=== PATIENT | female | born 1995 | race African-American/Black ===

== ENCOUNTER 2021-04-12 13:19 | Outpatient (REF) | payer BC, SELFPAY ==
[2021-04-12 14:59] LABS: Influenza A PCR NEGATIVE (Negative); Influenza B PCR NEGATIVE (Negative); Resp Syncy Virus RNA Qual PCR NEGATIVE (Negative); SARS COV2 PCR INHOUSE NEGATIVE (Negative)
[2021-04-12 16:48] LABS: D Dimer < 200 NG/ML
== END 2021-04-12 13:20 | disposition home or self-care (01) ==
LOC: HO.HMGCLDS 13:19
PROVIDERS: Visit Provider Nurse Practitioner Family
DX: Z20.822 Contact with and (suspected) exposure to COVID-19 (principal); R06.02 Shortness of breath; J01.90 Acute sinusitis, unspecified
CPT/HCPCS: 0241U; 36415; 85379

== ENCOUNTER 2021-07-05 08:55 | Outpatient (REF) | payer BC, SELFPAY ==
[2021-07-05 11:26] LABS: MANUAL DIFF FLAG NO
[2021-07-05 11:36] LABS: Basophils Absolute Auto 0.1 X10*3/uL (0.0-0.2); Basophils Percent Auto 1.1 % (0-2); Eosinophils Absolute Auto 0.1 X10*3/uL (0.0-0.4); Hemoglobin 11.7 g/dl (12.0-16.0); Imm Gran Abs Auto 0.01 X10*3/uL (0.00-0.03); Imm Gran Pct Auto 0.2 % (0.0-0.4); Lymphocytes Absolute Auto 1.6 X10*3/uL (1.2-4.9); Lymphocytes Percent Auto 34.3 % (20-40); Mean Corpuscular HGB Conc 32.5 g/dl (31.0-35.0); Mean Corpuscular Hemoglobin 25.3 pg (27.0-33.0); Mean Corpuscular Volume 77.8 fL (80.0-98.0); Mean Platelet Volume 11.5 fL (9.4-12.3); Monocytes Absolute Auto 0.4 X10*3/uL (0.1-1.2); Neutrophils Absolute Auto 2.5 x10*3/uL (2.0-8.3); Neutrophils Percent Auto 54.4 % (45-73); Platelet Count 190 X10*3/uL (160-400); Red Blood Count 4.63 X10*6/uL (4.20-5.50); White Blood Count 4.5 X10*3/uL (4.8-10.8)
[2021-07-05 11:58] LABS: Alanine Aminotransferase 55 U/L (0-31); Albumin Level 4.4 g/dL (3.5-5.0); Alkaline Phosphatase 61 U/L (39-117); Anion Gap 11 (12-20); Aspartate Amino Transferase 45 U/L (5-31); Bilirubin Total 0.5 mg/dL (0.0-1.0); Blood Urea Nitrogen 10 mg/dL (9-16); Carbon Dioxide 28 mmol/L (22-29); Chloride 103 mmol/L (96-108); Estimated Glomerular Filt Rate > 60; Glucose Random 82 mg/dL (60-115); Potassium 4.3 mmol/L (3.3-5.1); Sodium 138 mmol/L (135-145); Total Protein 7.4 g/dL (6.5-8.0)
[2021-07-08 01:07] LABS: LDL Cholesterol Direct 66 mg/dL (<100)
== END 2021-07-05 08:56 | disposition home or self-care (01) ==
LOC: HO.HMGCLDS 08:55
PROVIDERS: PCP Internal Medicine; Visit Provider Internal Medicine
DX: Z00.01 Encounter for general adult medical examination with abnormal findings (principal); G43.009 Migraine without aura, not intractable, without status migrainosus; J45.909 Unspecified asthma, uncomplicated; Z91.09 Other allergy status, other than to drugs and biological substances
CPT/HCPCS: 36415; 80053; 83721; 85025

== ENCOUNTER 2021-08-22 09:38 | Outpatient (REF) | payer BC, SELFPAY ==
[2021-08-22 13:26] LABS: CT PCR NOT DETECTED (Not Detect.); NG PCR NOT DETECTED (Not Detect.)
[2021-08-23 08:47] LABS: BV Int Neg Control Negative (Negative); BV Int Pos Control Positive (Positive)
== END 2021-08-22 09:39 | disposition home or self-care (01) ==
LOC: HO.LAB 09:38
PROVIDERS: PCP Internal Medicine; Visit Provider Advanced Practice Midwife
DX: Z01.419 Encounter for gynecological examination (general) (routine) without abnormal findings (principal)
CPT/HCPCS: 87480; 87491; 87510; 87591; 87660; 88142

== ENCOUNTER 2023-03-04 09:03 | Outpatient (AMB) | payer BC, MEDICAID, SELFPAY ==
--- NOTE | 2023-03-04 09:11 | AM.OFFWIN_ITS ---
Intake Vital Signs 03/04/23 09:12 Height 5 ft 7 in Weight 164 lb BMI 25.7 BP 124/72 Blood Pressure Location Lt brachial Position Sitting Pulse 80 Pulse Source Pulse Oximeter Temp 97.2 F Temp Source Temporal Artery Scan Pulse Oximetry (%) 98 Intake Visit Reasons: EP Severe head/Neck/face pain Intake Note: pt is here for c/o head,neck, face pain x5 days Patient Tobacco Use Status: Current everyday Tobacco user Allergies No Known Allergies Allergy (Verified 03/04/23 09:49) Medication List - Last Reconciled 03/04/23 by Aaron Coe MD No Known Home Meds Do you need a note to return to daycare/school/sports/work: Yes HPI EP Severe head/Neck/face pain HPI Details 27-year-old female presents to the office for a sick visit. Patient complains of headaches for the past 4 days. Mostly in the center of the head and around the forehead. Minimal relief with [id number] medications. No fevers or chills. No nausea or vomiting. PFSH Family History Mother Diabetes Multiple sclerosis Father HTN (hypertension) Sister Endometriosis Paternal Grandmother Ovarian cancer Social History Housing: House Alcohol intake: current Alcohol intake frequency: a few times a week Patient Tobacco Use Status: Current everyday Tobacco user Tobacco use type: Cigar Cigarettes Per Day: 1 Current occupational status: employed Sexual orientation: Lesbian/Hein/Homosexual Physical Exam Vital Signs: Last Vital Signs Temp 97.2 F 03/04/23 09:12 Pulse 80 03/04/23 09:12 BP 124/72 03/04/23 09:12 Pulse Ox 98 03/04/23 09:12 BMI result Body Mass Index 25.7 Const General: cooperative and healthy appearing Nutritional Appearance: well nourished Orientation/consciousness: patient oriented x3 Limitations: no limitations HEENT Other: Fundus exam: Pupils equal reactive to light. Optic disc visualized in both eye s. Head: Yes normal to inspection Eyes General: appearance normal, both eyes and all related structures Neck Neck: Yes normal visual inspection Chest Chest palpation & inspection: normal palpation of entire chest wall Resp Effort & Inspection: normal respiratory effort Neuro General: patient oriented x3 Assessment & Plan Assessment & Plan (1) Headache: Code(s): R51.9 - Headache, unspecified Plan: Mostly vascular in etiology. Meloxicam prescribed. Note for work given. If symptoms not better to follow-up here. Coding Level of Care Code Est Pt Level 4 (81424) Diagnoses Headache R51.9
[2023-03-04 09:12] VITALS: BP 124/72; PULSE 80; TEMP 36.2; O2SAT 98; BMI 25.7
== END 2023-03-04 10:13 | disposition home or self-care (01) ==
PROVIDERS: PCP Internal Medicine; Visit Provider Internal Medicine
DX: R51.9 Headache, unspecified (principal)
CPT/HCPCS: 99214

== ENCOUNTER 2023-04-14 12:06 | Outpatient (AMB) | payer BC, MEDICAID, SELFPAY ==
[2023-04-14 12:17] VITALS: BP 120/70; PULSE 92; O2SAT 100; BMI 26.8
--- NOTE | 2023-04-14 12:17 | MHC.PC.OV ---
Vital Signs 04/14/23 12:17 Height 5 ft 7 in Weight 171 lb 4 oz BMI 26.8 BP 120/70 Blood Pressure Location Lt brachial Position Sitting Pulse 92 Pulse Source Pulse Oximeter Pulse Oximetry (%) 100 Oxygen Delivery Method Room Air Intake Visit Reasons: Headache Sheet Folder Required: No Allergies No Known Allergies Allergy (Verified 04/14/23 12:25) Medication List - Last Reconciled 04/14/23 by Betsy Mueller MD No Known Home Meds Tobacco use date assessed: 04/14/23 Dental Screening Dental Screen Date: 04/14/23 Did you have a dental visit in the last 12 months?: Yes Did you have a dental problem in the last 6 months where you did not have access to dental care?: No Was dental information given to patient?: Patient has dentist HPI Headache HPI Details Patient is 27-year-old female who was last seen in 2020 came in today with a chief complaint of itchy rash on forearm and headache Patient says that it started 1 month ago when she also had respiratory congestion, she was evaluated in emergency room Report reviewed, she had a CT scan of head done which showed no acute findings. Her labs showed elevated lymphocytes and slight leukopenia as per report Patient was discharged home with the diagnosis of viral syndrome. She tells me that she continued to have itching in her forearm area and also continued to have headaches off and on She is taking no medications as she does not like to take medication. Her exam is benign there is no neck rigidity, pupils are reactive to light There are no focal neurological signs. I was not able to appreciate any rash either, however her rash is symmetrical bilateral forearm on inner aspect It also can be contact dermatitis. She is using a steroid cream she may continue that, I have placed a referral to Rheumatology as per patient's request. Lab order placed as well to re-evaluate the elevated lymphocytes. PFSH Family History Mother Diabetes Multiple sclerosis Father HTN (hypertension) Sister Endometriosis Paternal Grandmother Ovarian cancer Social History Housing: House Alcohol intake: current Alcohol intake frequency: a few times a week Patient Tobacco Use Status: Former Tobacco user Tobacco use type: Cigar Cigarettes Per Day: 1 e-Cigarette/Vaping Use: Never Used service: No Current occupational status: employed Sexual orientation: Lesbian/Hein/Homosexual Cognitive needs: No Hearing needs: No Vision needs: No Questionnaire PHQ-9 Over the last 2 weeks, how often have you been bothered by any of the following problems? 1. Little interest or pleasure in doing things: several days 2. Feeling down, depressed, or hopeless: several days 3. Trouble falling or staying asleep, or sleeping too much: several days 4. Feeling tired or having little energy: not at all 5. Poor appetite or overeating: not at all 6. Feeling bad about yourself - or that you are a failure or have let yourself or your family down: not at all 7. Trouble concentrating on things, such as reading the newspaper or watching television: not at all 8. Moving or speaking so slowly that other people could have noticed. Or the opposite - being so fidgety or restless that you have been moving around a lot more than usual: not at all 9. Thoughts that you would be better off or of hurting yourself in some way: not at all Total score: 3 Depression Screening Interpretation: Negative 01312 - PHQ-9 Billing: Yes Source: Developed by Drs. Peter Sabillon, Ivette Romero, Raymon Mac and colleagues, with an educational sonam from [employer]. Thrive Questionnaire Date Thrive assessed: 04/14/23 I am a: Patient What is your living situation today?: I have a steady place to live Within the past 12 months, did the food you bought not last and you didn't have the money to get more?: Never true Within the past 12 months, did you worry whether your food would run out before you got money to buy more?: Never true Do you have trouble paying for medicines?: No Do you have trouble getting transportation to medical appointments?: No Do you have trouble paying your heating and electricity bill?: No Do you have trouble taking care of your child, family member or friend?: No Do you have trouble with day-to-day activities such as bathing, preparing meals, shopping, managing finances, etc.?: No Are you currently unemployed and looking for a job?: No Are you interested in more education?: Yes AUDIT C Alcohol Use Questionnaire (AUDIT-C) 1. How often do you have a drink containing alcohol?: Monthly or less 2. How many drinks containing alcohol do you have on a typical day when you are drinking?: 1 or 2 3. How often do you have six or more drinks on one occasion?: Never Total Score: 1 Score Reviewed/Action Taken: Yes JUAN-7 AMB Questionnaire JUAN-7 Date JUAN - 7 assessed: 04/14/23 Feeling nervous, anxious, or on edge: 1 = Several days Not being able to stop or control worryin = Several days Worrying too much about different things: 1 = Several days Trouble relaxin = Several days Being so restless that it is hard to sit still: 1 = Several days Becoming easily annoyed or irritable: 1 = Several days Feeling afraid as if something awful might happen: 1 = Several days Total JUAN-7 score (0-4 normal; 5-9 mild; 10-14 moderate; 15-21 severe): 7 Source: Developed by Drs. Peter Sabillon, Ivette Romero, Raymon Mac and colleagues, with an educational sonam from [employer]. JUAN-7 Assessment Billing JUAN-7 Assessment Tool: JUAN-7 Assessment 69516 Review of Systems Const Denies chills and Denies fever(s) ENT Denies epistaxis and Denies nasal discharge Card Denies chest pain Resp Denies chest congestion, Denies cough and Denies hemoptysis GI Denies diarrhea and Denies nausea Neuro Reports no additional complaints Psych Reports no additional complaints Endo Reports no additional complaints Physical exam (Primary Care) Vital Signs: Last Vital Signs Pulse 92 04/14/23 12:17 BP 120/70 04/14/23 12:17 Pulse Ox 100 04/14/23 12:17 Oxygen Delivery Method Room Air 04/14/23 12:17 BMI result Body Mass Index 26.8 Tobacco/Smoking Status: Tobacco use Status Tobacco use date assessed 04/14/23 04/14/23 12:19 Patient Tobacco Use Status Former Tobacco user 04/14/23 12:25 Tobacco use type Cigar 04/14/23 12:19 e-Cigarette/Vaping Use Never Used 04/14/23 12:25 PHQ-9: PHQ-9 Score PHQ-9: Total score 3 04/14/23 12:51 Depression Screening Interpretation: Negative Thrive Assessment: Date of Thrive Assessment Date Thrive assessed 04/14/23 04/14/23 12:51 Const General: cooperative, comfortable and no acute distress Orientation/consciousness: patient oriented x3 HENNE Head: Yes normocephalic Eyes General: appearance normal, both eyes and all related structures Neck Neck: Yes supple Resp Effort & Inspection: normal respiratory effort, no cough and no stridor Cardio Rhythm: regular rhythm Heart sounds: S1 normal heart sound present and S2 normal heart sound present Skin Other: no rash was visible to my eyes General skin exam: turgor normal Neuro General: patient oriented x3, tone normal and moves all extremities Extrem Right lower extremity: no edema Left lower extremity: no edema Assessment and Plan Assessment & Plan (1) Rash: Code(s): R21 - Rash and other nonspecific skin eruption (2) Headache syndrome: Code(s): G44.89 - Other headache syndrome (3) Lymphocytosis: Code(s): D72.820 - Lymphocytosis (symptomatic) (4) Leukopenia: Code(s): D72.819 - Decreased white blood cell count, unspecified Qualifiers: Leukopenia type: neutropenia Neutropenia type: other Qualified Code(s): D70.8 - Other neutropenia Plan Patient is 27-year-old female who was last seen in 2020 came in today with a chief complaint of itchy rash on forearm and headache Patient says that it started 1 month ago when she also had respiratory congestion, she was evaluated in emergency room Report reviewed, she had a CT scan of head done which showed no acute findings. Her labs showed elevated lymphocytes and slight leukopenia as per report Patient was discharged home with the diagnosis of viral syndrome. She tells me that she continued to have itching in her forearm area and also continued to have headaches off and on She is taking no medications as she does not like to take medication. Her exam is benign there is no neck rigidity, pupils are reactive to light There are no focal neurological signs. I was not able to appreciate any rash either, however her rash is symmetrical bilateral forearm on inner aspect It also can be contact dermatitis. She is using a steroid cream she may continue that, I have placed a referral to Rheumatology as per patient's request. Lab order placed as well to re-evaluate the elevated lymphocytes. Orders: Orders Complete Blood Count Auto Diff Today G44.89 - Other headache syndrome, R21 - Rash and other nonspecific skin eruption Comprehensive Met. Panel Today G44.89 - Other headache syndrome, R21 - Rash and other nonspecific skin eruption TSH reflex Free T4 Today G44.89 - Other headache syndrome, R21 - Rash and other nonspecific skin eruption Referrals Dermatology Referral R21 - Rash and other nonspecific skin eruption Coding Level of Care Code Est Pt Level 4 (26054) Diagnoses Rash R21 Headache syndrome G44.89 Lymphocytosis D72.820 Other neutropenia D70.8 Leukopenia type: neutropenia Neutropenia type: other Additional Codes JUAN-7 Assessment Billing - JUAN-7 Assessment Tool: JUAN-7 Assessment [id number] ([id number])
== END 2023-04-14 12:46 | disposition home or self-care (01) ==
PROVIDERS: PCP Internal Medicine; Visit Provider Internal Medicine
DX: R21 Rash and other nonspecific skin eruption (principal); G44.89 Other headache syndrome; D72.820 Lymphocytosis (symptomatic); D70.8 Other neutropenia
CPT/HCPCS: 99214

== ENCOUNTER 2023-08-19 12:56 | Outpatient (AMB) | payer BC, SELFPAY ==
--- NOTE | 2023-08-19 13:03 | MHC.PC.OV ---
Vital Signs 08/19/23 13:04 Height 5 ft 7 in Weight 174 lb BMI 27.2 BP 122/78 Blood Pressure Location Lt brachial Position Sitting Pulse 90 Pulse Source Pulse Oximeter Pulse Oximetry (%) 99 Oxygen Delivery Method Room Air Intake Visit Reasons: Annual PE Overdue Allergies No Known Allergies Allergy (Verified 08/19/23 13:06) Medication List - Last Reconciled 08/19/23 by Betsy Mueller MD No Known Home Meds Tobacco use date assessed: 08/19/23 Dental Screening Dental Screen Date: 08/19/23 Did you have a dental visit in the last 12 months?: Yes Did you have a dental problem in the last 6 months where you did not have access to dental care?: No Was dental information given to patient?: Patient has dentist HPI Annual PE Overdue HPI Details Physical exam appointment Patient would like to have a new OBGYN at [facility] CQ Referral placed Last time she had labs she has slightly elevated liver enzymes we will be checking that again Her white count was slightly low Patient offer no other complaints today Headaches are stable. We will book a telemedicine visit for next week to go over lab reports Physical exam 1 year [facility] Family History Mother Diabetes Multiple sclerosis Father HTN (hypertension) Sister Endometriosis Paternal Grandmother Ovarian cancer Social History Housing: House Alcohol intake: current Alcohol intake frequency: a few times a week Patient Tobacco Use Status: Former Tobacco user Tobacco use type: Cigar Cigarettes Per Day: 1 e-Cigarette/Vaping Use: Never Used service: No Current occupational status: employed Sexual orientation: Lesbian/Hein/Homosexual Cognitive needs: No Hearing needs: No Vision needs: No Questionnaire Thrive Questionnaire Date Thrive assessed: 04/14/23 JUAN-7 AMB Questionnaire JUAN-7 Date JUAN - 7 assessed: 04/14/23 Source: Developed by Drs. Peter Sabillon, Ivette Romero, Raymon Mac and colleagues, with an educational sonam from [employer]. Review of Systems Const Denies chills, Denies fever(s) and Denies headache(s) Eyes Denies blurry vision ENT Denies headache(s), Denies nasal discharge, Denies nasal obstruction, Denies odynophagia and Denies sinus pain Card Denies chest pain at rest and Denies chest pain with activity Resp Denies cough and Denies hemoptysis GI Denies diarrhea, Denies odynophagia, Denies vomiting and Denies hematemesis Reports as per HPI Musc Denies abnormal gait Skin/Breast Reports as per HPI Neuro Denies Neuro-related abnormal movements, Denies Abnormal speech present, Denies abnormal gait, Denies headache(s) and Denies Sensory deficit (Neuro) Psych Denies mood swings and Denies paranoia Endo Reports as per HPI Anastacio/Lymph Reports as per HPI Aller/Immun Reports as per HPI Physical exam (Primary Care) Vital Signs: Last Vital Signs Pulse 90 08/19/23 13:04 BP 122/78 08/19/23 13:04 Pulse Ox 99 08/19/23 13:04 Oxygen Delivery Method Room Air 08/19/23 13:04 BMI result Body Mass Index 27.2 Tobacco/Smoking Status: Tobacco use Status Tobacco use date assessed 08/19/23 08/19/23 13:06 Patient Tobacco Use Status Former Tobacco user 08/19/23 13:04 Tobacco use type Cigar 08/19/23 13:04 e-Cigarette/Vaping Use Never Used 08/19/23 13:04 Thrive Assessment: Date of Thrive Assessment Date Thrive assessed 04/14/23 08/19/23 13:04 Const General: cooperative, comfortable and no acute distress Orientation/consciousness: patient oriented x3 HENMT Head: Yes normocephalic and Yes atraumatic Eyes General: appearance normal, both eyes and all related structures Pupils: Equal, round and reactive pupils present EOM: EOMs intact bilaterally Neck Neck: Yes supple and No lymphadenopathy Thyroid: Thyroid normal Lymphatic: no lymphadenopathy noted Chest Breast/axilla palpation: normal palpation of the breasts Resp Effort & Inspection: normal respiratory effort and able to speak in complete sentences Auscultation: clear to auscultation bilaterally Cardio Heart sounds: S1 normal heart sound present and S2 normal heart sound present GI Palpation (GI): Soft to palpation and nontender Auscultation: normal bowel sounds General: Yes no CVA tenderness Back/Spine/Pelvis Back: no CVA tenderness Skin General skin exam: elasticity normal and turgor normal Neuro General: patient oriented x3 and gait normal Cranial nerves: Yes Equal, round and reactive pupils present Speech: No Abnormal speech present Sensory Exam: No Sensory deficit (Neuro) Coordination: tandem gait normal and Romberg test negative Extrem General: Yes normal exam except as noted and No edema Assessment and Plan Assessment & Plan (1) Encounter for general adult medical examination with abnormal findings: Code(s): Z00.01 - Encounter for general adult medical examination with abnormal findings (2) Headache syndrome: Code(s): G44.89 - Other headache syndrome (3) Environmental allergies: Code(s): Z91.09 - Other allergy status, other than to drugs and biological substances (4) Allergy-induced asthma: Code(s): J45.909 - Unspecified asthma, uncomplicated Qualifiers: Asthma complication type: uncomplicated Asthma persistence: intermittent Asthma severity: mild (5) LFT elevation: Code(s): R79.89 - Other specified abnormal findings of blood chemistry (6) Low hemoglobin: Code(s): D64.9 - Anemia, unspecified (7) Leukopenia: Code(s): D72.819 - Decreased white blood cell count, unspecified Qualifiers: Leukopenia type: neutropenia Neutropenia type: other Qualified Code(s): D70.8 - Other neutropenia (8) Lymphocytosis: Code(s): D72.820 - Lymphocytosis (symptomatic) Plan Physical exam appointment Patient would like to have a new OBGYN at [facility] CQ Referral placed Last time she had labs she has slightly elevated liver enzymes we will be checking that again Her white count was slightly low Patient offer no other complaints today Headaches are stable. We will book a telemedicine visit for next week to go over lab reports Physical exam 1 year Orders: Orders Complete Blood Count Auto Diff Today D64.9 - Anemia, unspecified, D72.819 - Decreased white blood cell count, unspecified, D72.820 - Lymphocytosis (symptomatic), G44.89 - Other headache syndrome, J45.909 - Unspecified asthma, uncomplicated, R79.89 - Other specified abnormal findings of blood chemistry, Z00.01 - Encounter for general adult medical examination with abnormal findings, Z91.09 - Other allergy status, other than to drugs and biological substances Comprehensive Met. Panel Today D64.9 - Anemia, unspecified, D72.819 - Decreased white blood cell count, unspecified, D72.820 - Lymphocytosis (symptomatic), G44.89 - Other headache syndrome, J45.909 - Unspecified asthma, uncomplicated, R79.89 - Other specified abnormal findings of blood chemistry, Z00.01 - Encounter for general adult medical examination with abnormal findings, Z91.09 - Other allergy status, other than to drugs and biological substances LDL Cholesterol Direct Today D64.9 - Anemia, unspecified, D72.819 - Decreased white blood cell count, unspecified, D72.820 - Lymphocytosis (symptomatic), G44.89 - Other headache syndrome, J45.909 - Unspecified asthma, uncomplicated, R79.89 - Other specified abnormal findings of blood chemistry, Z00.01 - Encounter for general adult medical examination with abnormal findings, Z91.09 - Other allergy status, other than to drugs and biological substances Vitamin B12 Today D64.9 - Anemia, unspecified, D72.819 - Decreased white blood cell count, unspecified, D72.820 - Lymphocytosis (symptomatic), G44.89 - Other headache syndrome, J45.909 - Unspecified asthma, uncomplicated, R79.89 - Other specified abnormal findings of blood chemistry, Z00.01 - Encounter for general adult medical examination with abnormal findings, Z91.09 - Other allergy status, other than to drugs and biological substances Referrals BUILD TECHNICIAN Referral Z01.419 - Encounter for gynecological examination (general) (routine) without abnormal findings Coding Level of Care Code Est Pt Prev Care 18-39y(19517) Diagnoses Encounter for general adult medical examination with abnormal findings Z00.01 Headache syndrome G44.89 Environmental allergies Z91.09 Allergy-induced asthma J45.909 Asthma complication type: uncomplicated Asthma persistence: intermittent Asthma severity: mild LFT elevation R79.89 Low hemoglobin D64.9 Other neutropenia D70.8 Leukopenia type: neutropenia Neutropenia type: other Lymphocytosis D72.820
[2023-08-19 13:04] VITALS: BP 122/78; PULSE 90; O2SAT 99; BMI 27.2
== END 2023-08-19 13:24 | disposition home or self-care (01) ==
PROVIDERS: PCP Internal Medicine; Visit Provider Internal Medicine
DX: Z00.00 Encounter for general adult medical examination without abnormal findings (principal); D70.8 Other neutropenia; G44.89 Other headache syndrome; Z91.09 Other allergy status, other than to drugs and biological substances; J45.909 Unspecified asthma, uncomplicated; R79.89 Other specified abnormal findings of blood chemistry; D64.9 Anemia, unspecified; D72.820 Lymphocytosis (symptomatic)
CPT/HCPCS: 99395

== ENCOUNTER 2023-08-19 13:24 | Outpatient (REF) | payer BC, SELFPAY ==
[2023-08-19 16:09] LABS: MANUAL DIFF FLAG NO
[2023-08-19 16:17] LABS: Basophils Absolute Auto 0.1 X10*3/uL (0.0-0.2); Basophils Percent Auto 1.1 % (0-2); Eosinophils Absolute Auto 0.1 X10*3/uL (0.0-0.4); Eosinophils Percent Auto 2.5 % (0-4); Hematocrit 34.1 % (37.0-47.0); Hemoglobin 11.3 g/dl (12.0-16.0); Imm Gran Abs Auto 0.01 X10*3/uL (0.00-0.03); Imm Gran Pct Auto 0.2 % (0.0-0.4); Lymphocytes Absolute Auto 1.9 X10*3/uL (1.2-4.9); Mean Corpuscular HGB Conc 33.1 g/dl (31.0-35.0); Mean Corpuscular Hemoglobin 25.6 pg (27.0-33.0); Mean Corpuscular Volume 77.1 fL (80.0-98.0); Mean Platelet Volume 11.4 fL (9.4-12.3); Monocytes Absolute Auto 0.4 X10*3/uL (0.1-1.2); Monocytes Percent Auto 7.9 % (2-11); Neutrophils Absolute Auto 2.1 x10*3/uL (2.0-8.3); Neutrophils Percent Auto 46.3 % (45-73); Platelet Count 265 X10*3/uL (160-400); Red Blood Count 4.42 X10*6/uL (4.20-5.50); Red Cell Distribution Width 13.6 % (11.0-16.0); White Blood Count 4.4 X10*3/uL (4.8-10.8)
[2023-08-19 16:35] LABS: Alanine Aminotransferase 68 U/L (0-31); Albumin Level 4.3 g/dL (3.5-5.0); Alkaline Phosphatase 61 U/L (39-117); Anion Gap 13 (12-20); Aspartate Amino Transferase 49 U/L (5-31); Bilirubin Total 0.2 mg/dL (0.0-1.0); Blood Urea Nitrogen 11 mg/dL (9-16); Calcium 9.7 mg/dL (8.4-10.2); Carbon Dioxide 25 mmol/L (22-29); Chloride 106 mmol/L (96-108); Estimated Glomerular Filt Rate > 60; Glucose Random 81 mg/dL (60-115); Sodium 140 mmol/L (135-145); Total Protein 7.7 g/dL (6.5-8.0)
[2023-08-19 16:51] LABS: TSH reflex Free T4 1.13 uIU/mL (0.32-4.0)
[2023-08-19 16:58] LABS: Vitamin B12 1031 pg/mL (200-900)
[2023-08-20 12:38] LABS: LDL Cholesterol Direct 71 mg/dL (<100)
== END 2023-08-19 13:25 | disposition home or self-care (01) ==
LOC: HO.HMGCLDS 13:24
PROVIDERS: PCP Internal Medicine; Visit Provider Internal Medicine
DX: Z00.01 Encounter for general adult medical examination with abnormal findings (principal); G44.89 Other headache syndrome; J45.909 Unspecified asthma, uncomplicated; R79.89 Other specified abnormal findings of blood chemistry; D64.9 Anemia, unspecified; D72.819 Decreased white blood cell count, unspecified; D72.820 Lymphocytosis (symptomatic); R21 Rash and other nonspecific skin eruption; Z79.01 Long term (current) use of anticoagulants
CPT/HCPCS: 36415; 80053; 82607; 83721; 84443; 85025

== ENCOUNTER 2023-08-26 08:12 | Outpatient (AMB) | payer BC, SELFPAY ==
--- NOTE | 2023-08-26 08:01 | A.OFFPC_ITS ---
Vital Signs 08/26/23 08:14 Height 5 ft 7 in Intake Visit Reasons: F/u ~[phone] Allergies No Known Allergies Allergy (Verified 08/19/23 13:06) Medication List - Last Reconciled 08/26/23 by Betsy Mueller MD No Known Home Meds Tobacco use date assessed: 08/26/23 Dental Screening Dental Screen Date: 08/26/23 Did you have a dental visit in the last 12 months?: Yes Did you have a dental problem in the last 6 months where you did not have access to dental care?: No Was dental information given to patient?: Patient has dentist HPI F/u ~[phone] HPI Details Patient is 28-year-old female this is a telemedicine video conference to go over labs Patient continued to have slight leukopenia Along with slight anemia with microcytic indices She tells me that sometimes her menstrual cycle is very heavy I am starting her on iron supplement we will repeat labs again in 3 months LFT: Her liver enzymes also has gotten slightly worse than before For that I recommend that she try to lose some weight and avoid hepatotoxic medications like Tylenol We will also repeat LFTs in 3 months Patient has no abdominal symptoms PFSH Family History Mother Diabetes Multiple sclerosis Father HTN (hypertension) Sister Endometriosis Paternal Grandmother Ovarian cancer Social History Housing: House Alcohol intake: current Alcohol intake frequency: a few times a week Patient Tobacco Use Status: Former Tobacco user Tobacco use type: Cigar Cigarettes Per Day: 1 e-Cigarette/Vaping Use: Never Used service: No Current occupational status: employed Sexual orientation: Lesbian/Hein/Homosexual Cognitive needs: No Hearing needs: No Vision needs: No Questionnaire Thrive Questionnaire Date Thrive assessed: 04/14/23 AUDIT C Alcohol Use Questionnaire (AUDIT-C) 1. How often do you have a drink containing alcohol?: Monthly or less 2. How many drinks containing alcohol do you have on a typical day when you are drinking?: 1 or 2 3. How often do you have six or more drinks on one occasion?: Never Total Score: 1 Score Reviewed/Action Taken: Yes JUAN-7 AMB Questionnaire JUAN-7 Date JUAN - 7 assessed: 04/14/23 Source: Developed by Drs. Peter Sabillon, Ivette Romero, Raymon Mac and colleagues, with an educational sonam from [employer]. Review of Systems Const Denies chills and Denies fever(s) ENT Denies epistaxis and Denies nasal discharge Card Denies chest pain Resp Denies chest congestion, Denies cough and Denies hemoptysis GI Denies diarrhea and Denies nausea Skin/Breast Denies rash Neuro Reports no additional complaints Psych Reports no additional complaints Endo Reports no additional complaints Physical exam (Primary Care) Tobacco/Smoking Status: Tobacco use Status Tobacco use date assessed 08/26/23 08/26/23 08:15 Patient Tobacco Use Status Former Tobacco user 08/26/23 08:01 Tobacco use type Cigar 08/26/23 08:01 e-Cigarette/Vaping Use Never Used 08/26/23 08:01 Thrive Assessment: Date of Thrive Assessment Date Thrive assessed 04/14/23 08/26/23 08:01 Telehealth Telehealth Location of provider rendering services: practice address Location of patient: address on file Patient Identification confirmed using: Name, : Yes Telehealth method: video Patient verbally consented to treatment: Yes Patient verbally consented to billing insurance company: Yes Patient informed of any privacy concerns related to visit: Yes Minutes spent on Phone/Video with Pt.: 13 Assessment and Plan Assessment & Plan (1) Leukopenia: Code(s): D72.819 - Decreased white blood cell count, unspecified Qualifiers: Leukopenia type: neutropenia Neutropenia type: other Qualified Code(s): D70.8 - Other neutropenia (2) LFT elevation: Code(s): R79.89 - Other specified abnormal findings of blood chemistry (3) Iron deficiency anemia: Code(s): D50.9 - Iron deficiency anemia, unspecified Qualifiers: Iron deficiency anemia type: chronic blood loss Qualified Code(s): D50.0 - Iron deficiency anemia secondary to blood loss (chronic) Plan Patient is 28-year-old female this is a telemedicine video conference to go over labs Patient continued to have slight leukopenia Along with slight anemia with microcytic indices She tells me that sometimes her menstrual cycle is very heavy I am starting her on iron supplement we will repeat labs again in 3 months LFT: Her liver enzymes also has gotten slightly worse than before For that I recommend that she try to lose some weight and avoid hepatotoxic medications like Tylenol We will also repeat LFTs in 3 months Patient has no abdominal symptoms Orders: Orders Comprehensive Met. Panel Today D50.9 - Iron deficiency anemia, unspecified, D72.819 - Decreased white blood cell count, unspecified, R79.89 - Other specified abnormal findings of blood chemistry IRON PROFILE Today D50.9 - Iron deficiency anemia, unspecified, D72.819 - Decreased white blood cell count, unspecified, R79.89 - Other specified abnormal findings of blood chemistry Ferritin Today D50.9 - Iron deficiency anemia, unspecified, D72.819 - Decreased white blood cell count, unspecified, R79.89 - Other specified abnormal findings of blood chemistry Complete Blood Count Auto Diff Today D50.9 - Iron deficiency anemia, unspecified, D72.819 - Decreased white blood cell count, unspecified, R79.89 - Other specified abnormal findings of blood chemistry Coding Level of Care Code Tele Est Pt Level 3 (38457) Diagnoses Other neutropenia D70.8 Leukopenia type: neutropenia Neutropenia type: other LFT elevation R79.89 Iron deficiency anemia due to chronic blood loss D50.0 Iron deficiency anemia type: chronic blood loss
== END 2023-08-26 09:36 | disposition home or self-care (01) ==
LOC: HO.HMGC 08:13
PROVIDERS: PCP Internal Medicine; Visit Provider Internal Medicine
DX: D70.8 Other neutropenia (principal); R79.89 Other specified abnormal findings of blood chemistry; D50.0 Iron deficiency anemia secondary to blood loss (chronic)
CPT/HCPCS: 99213

== ENCOUNTER 2023-12-23 08:15 | Outpatient (AMB) | payer BC, SELFPAY ==
--- NOTE | 2023-12-23 08:18 | MHC.OFFVIS ---
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 Doing well with concerns: Prone to yeast and BV, uses boric acid to treat for a week finished last dose several days ago. Currently has external dryness and along with itching, denies any odors, pelvic pain, or dysuria. Has also started an nlod-gdx-gfiolnn herbal extract combination therapy for vaginal health that includes a oregano, garlic, olive leaf and black seed oil She tries to eat healthy and stays active with exercise at the gym 3 times a week. Regular monthly menses, lasting 5-6 days and heavy. Currently is sexually active, female long-term partner. STI screening offered; she accepts. Family history of breast and ovarian cancer. Last pap smear 2021, negative. PFSH Family History Mother Diabetes Multiple sclerosis Father HTN (hypertension) Sister Endometriosis Paternal Grandmother Ovarian cancer Maternal Aunt Breast cancer Social History Housing: House Alcohol intake: current Alcohol intake frequency: a few times a week Patient Tobacco Use Status: Former Tobacco user Tobacco use type: Cigar Cigarettes Per Day: 1 e-Cigarette/Vaping Use: Never Used service: No Current occupational status: employed Sexual orientation: Lesbian/Hein/Homosexual Cognitive needs: No Hearing needs: No Vision needs: No Female Reproductive History Menstrual Age of Menarche: 10 Duration of menses: 6-7 days Date of last menstrual period: 12/10/23 control method: none Total pregnancies: 0 Date of last pap smear: 08/23/21 (negative) Review of Systems Const All systems reviewed & are unremarkable except as noted in HPI and below Reports as per HPI Eyes Reports no additional complaints ENT Reports no additional complaints Card Reports no additional complaints Resp Reports no additional complaints GI Reports as per HPI and Reports no additional complaints Reports as per HPI Musc Reports no additional complaints Skin/Breast Reports as per HPI Neuro Reports no additional complaints Psych Reports no additional complaints Endo Reports no additional complaints Anastacio/Lymph Reports no additional complaints Aller/Immun Reports no additional complaints Physical Exam Vital Signs: Last Vital Signs BP 120/72 12/23/23 08:29 BMI result Body Mass Index 25.4 Const General: cooperative, healthy appearing, no acute distress, well developed and alert Orientation/consciousness: patient oriented x3 HEENT Head: Yes normal to inspection Eyes General: appearance normal, both eyes and all related structures Neck Neck: Yes normal visual inspection Thyroid: Thyroid normal Chest Chest palpation & inspection: normal inspection of the chest and other (no puckering, dimpling, peau de orange, retraction, discharge, masses) Breast/axilla inspection: normal inspection of the breasts Breast/axilla palpation: normal palpation of the breasts Resp Effort & Inspection: normal respiratory effort GI Inspection: Yes normal to inspection Palpation (GI): Soft to palpation Rectal Exam - Female: deferred General: Yes bladder normal to palpation External Female Exam: normal external appearance and normal appearance of the urethra Speculum Exam - Vagina: normal appearance of the vagina, normal palpation and normal vaginal discharge Speculum Exam - Cervix: normal appearance of the cervix and normal palpation Bimanual exam- vagina & uterus: normal bimanual exam, normal palpation, uterine size normal, bladder normal to palpation, normal palpation and non-tender Bimanual Exam- Adnexa, other: no masses Skin General skin exam: no rashes or lesions noted Rashes: no rashes Neuro General: patient oriented x3 Cognition (Neuro): normal cognition Extrem General: Yes normal to inspection Psych Attitude: cooperative Thought process: Normal thought process present Assessment & Plan Assessment & Plan (1) Encounter for well woman exam with routine gynecological exam: Code(s): Z01.419 - Encounter for gynecological examination (general) (routine) without abnormal findings Category: Medical (2) Heavy menses: Code(s): N92.0 - Excessive and frequent menstruation with regular cycle Category: Medical Qualifiers: Menorrhagia type: with regular cycle Qualified Code(s): N92.0 - Excessive and frequent menstruation with regular cycle Plan Discussed: Current recommendations for pap smears per ASCCP guidelines. Breast awareness and periodic breast exams. Maintain a healthy lifestyle including a well balanced diet and routine exercise. Workup for heavy menses to include pelvic ultrasound and cultures. Plan follow up in person for test results and plan of care. Patient verbalizes understanding and agrees to the plan of care. She was given opportunity to ask questions and all questions were answered to the best of my ability. 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 This note is constructed using voice recognition software. While every effort has been made to ensure accuracy, associate application developer errors may have been included. Orders: Orders Bacterial Vaginosis Panel Today N89.8 - Other specified noninflammatory disorders of vagina Pap Smear Today Z12.4 - Encounter for screening for malignant neoplasm of cervix US pelvic and transvaginal Today N92.0 - Excessive and frequent menstruation with regular cycle CT NG by PCR Today N89.8 - Other specified noninflammatory disorders of vagina Coding Level of Care Code Est Pt Prev Care 18-39y(81034) Diagnoses Encounter for well woman exam with routine gynecological exam Z01.419 Menorrhagia with regular cycle N92.0 Menorrhagia type: with regular cycle
[2023-12-23 08:29] VITALS: BP 120/72; BMI 25.4
== END 2023-12-23 08:58 | disposition home or self-care (01) ==
LOC: HO.HWS 08:15
PROVIDERS: PCP Internal Medicine; Visit Provider Advanced Practice Midwife
DX: Z01.419 Encounter for gynecological examination (general) (routine) without abnormal findings (principal); N92.0 Excessive and frequent menstruation with regular cycle
CPT/HCPCS: 99395

== ENCOUNTER 2023-12-23 08:15 | Outpatient (REF) | payer BC, SELFPAY ==
[2023-12-23 15:26] LABS: Bacterial Vaginosis PCR NEGATIVE (Negative); Candida Group PCR NOT DETECTED (Not Detect); Candida glab krusei PCR NOT DETECTED (Not Detect); Trichomonas vaginalis PCR NOT DETECTED (Not Detect)
[2023-12-23 15:55] LABS: CT PCR NOT DETECTED (Not Detect.); NG PCR NOT DETECTED (Not Detect.)
== END 2023-12-23 08:16 | disposition home or self-care (01) ==
LOC: HO.LNP 08:15
PROVIDERS: PCP Internal Medicine; Visit Provider Advanced Practice Midwife
DX: Z12.4 Encounter for screening for malignant neoplasm of cervix (principal); N89.8 Other specified noninflammatory disorders of vagina
CPT/HCPCS: 0352U; 0353U; 88142

== ENCOUNTER 2023-12-23 09:21 | Outpatient (REF) | payer BC, SELFPAY ==
[2023-12-23 10:17] LABS: MANUAL DIFF FLAG NO
[2023-12-23 10:44] LABS: Basophils Absolute Auto 0.1 X10*3/uL (0.0-0.2); Basophils Percent Auto 1.5 % (0-2); Eosinophils Absolute Auto 0.1 X10*3/uL (0.0-0.4); Eosinophils Percent Auto 2.2 % (0-4); Hematocrit 36.3 % (37.0-47.0); Hemoglobin 12.1 g/dl (12.0-16.0); Lymphocytes Absolute Auto 1.6 X10*3/uL (1.2-4.9); Lymphocytes Percent Auto 49.7 % (20-40); Mean Corpuscular HGB Conc 33.3 g/dl (31.0-35.0); Mean Corpuscular Hemoglobin 25.4 pg (27.0-33.0); Mean Corpuscular Volume 76.3 fL (80.0-98.0); Mean Platelet Volume 11.4 fL (9.4-12.3); Monocytes Absolute Auto 0.3 X10*3/uL (0.1-1.2); Monocytes Percent Auto 9.6 % (2-11); Neutrophils Absolute Auto 1.2 x10*3/uL (2.0-8.3); Platelet Count 155 X10*3/uL (160-400); Red Blood Count 4.76 X10*6/uL (4.20-5.50); Red Cell Distribution Width 16.7 % (11.0-16.0); White Blood Count 3.2 X10*3/uL (4.8-10.8)
[2023-12-23 10:54] LABS: Alanine Aminotransferase 37 U/L (0-31); Albumin Level 4.4 g/dL (3.5-5.0); Alkaline Phosphatase 67 U/L (39-117); Anion Gap 14 (12-20); Aspartate Amino Transferase 54 U/L (5-31); Bilirubin Total 0.2 mg/dL (0.0-1.0); Blood Urea Nitrogen 11 mg/dL (9-16); Calcium 9.6 mg/dL (8.4-10.2); Carbon Dioxide 26 mmol/L (22-29); Chloride 106 mmol/L (96-108); Estimated Glomerular Filt Rate > 60; Glucose Random 90 mg/dL (60-115); Iron 38 mcg/dL (30-160); Percent Iron Saturation 10 % (15-50); Potassium 3.9 mmol/L (3.3-5.1); Sodium 142 mmol/L (135-145); Total Iron Binding Capacity 389 mcg/dL (228-428); Total Protein 7.7 g/dL (6.5-8.0); Unsaturated Iron Binding 351 ug/dL
[2023-12-23 11:16] LABS: Ferritin 15 ng/mL (10-122)
[2024-01-01 00:38] LABS: HPV mRNA E6/E7 rflx Not Detected (Not Detected)
== END 2023-12-23 09:22 | disposition home or self-care (01) ==
LOC: HO.HMGCLDS 09:21
PROVIDERS: PCP Internal Medicine; Visit Provider Internal Medicine
DX: D50.9 Iron deficiency anemia, unspecified (principal); D72.819 Decreased white blood cell count, unspecified; R79.89 Other specified abnormal findings of blood chemistry
CPT/HCPCS: 36415; 80053; 82728; 83540; 85025; 87624

== ENCOUNTER 2023-12-30 11:32 | Outpatient (REF) | payer BC, SELFPAY ==
--- NOTE | ~2023-12-30 | US_ITS ---
EXAMINATION: US PELVIS CLINICAL INFORMATION: Excessive and frequent menstruation, last menstrual period 12/09/2023. COMPARISON: None available. TECHNIQUE: Ultrasound of the pelvis is performed using both transabdominal and transvaginal transducers along with Doppler. Transvaginal imaging is performed due to inadequate visualization transabdominally. FINDINGS: The uterus is retroverted, retroflexed and measures 7.8 x 4.9 x 9.0 cm, volume 180.5 mL. Multiple uterine fibroids with largest as follows: Right 5.7 x 4.4 x 4.9 cm, low 1.4 x 1.0 x 1.3 cm, low 1.3 x 1.1 x 1.2 cm, 1.3 x 0.6 x 0.7 cm, 1.0 x 0.6 x 0.9 cm, 2.1 x 1.8 x 2.0 cm, and left 0.8 x 0.7 x 0.8 cm and 1.3 x 1.1 x 1.3 cm. Left ovary measures 2.2 x 1.9 x 2.1 cm, volume 6.7 mL and is unremarkable. Moderate amount of free fluid. Right ovary measures 4.3 x 2.4 x 2.8 cm, volume 15.1 mL. Right ovarian 2.2 x 1.7 x 2.8 cm complex cyst versus solid lesion with possible thick stock and heterogeneous echotexture. US/US pelvic and transvaginal IMPRESSION: 1. Enlarged, fibroid, retroverted uterus. 2. Endometrium is echogenic with endometrial thickness of 9 mm. Correlation with menstrual history and clinical exam recommended to determine further management including possible biopsy in the appropriate clinical setting. 3. Right ovarian 2.8 cm complex cyst versus solid mass. Recommend follow up ultrasound in 4-6 weeks.
== END 2023-12-30 11:33 | disposition home or self-care (01) ==
LOC: HO.US 11:32
PROVIDERS: PCP Internal Medicine; Visit Provider Advanced Practice Midwife
DX: N92.0 Excessive and frequent menstruation with regular cycle (principal)
CPT/HCPCS: 76830; 76856

== ENCOUNTER 2023-12-31 08:51 | Outpatient (AMB) | payer BC, SELFPAY ==
--- NOTE | 2023-12-31 08:52 | A.OFFPC_ITS ---
Intake Visit Reasons: Discuss labs~ [phone], IPHONE Allergies No Known Allergies Allergy (Verified 12/31/23 08:53) Medication List - Last Reconciled 12/31/23 by Betsy Mueller MD No Known Home Meds Tobacco use date assessed: 12/31/23 Dental Screening Dental Screen Date: 12/31/23 Did you have a dental visit in the last 12 months?: Yes Did you have a dental problem in the last 6 months where you did not have access to dental care?: No Was dental information given to patient?: Patient has dentist HPI Discuss labs~ [phone] HPI Details Patient is 28-year-old female this is a telemedicine video conference to go over her labs Patient have slightly leukopenia all along but recent labs shows worsening white count. Her liver enzymes are stable but slightly elevated She is still taking iron, her hemoglobin is normal, and ferritin level is within the normal range but low normal at 15 Patient is to continue iron supplement. Labs reviewed with the patient she was given time to ask questions I will be booking her appointment with Hematology due to leukopenia. PFSH Family History Mother Diabetes Multiple sclerosis Father HTN (hypertension) Sister Endometriosis Paternal Grandmother Ovarian cancer Maternal Aunt Breast cancer Social History Housing: House Alcohol intake: current Alcohol intake frequency: a few times a week Patient Tobacco Use Status: Former Tobacco user Tobacco use type: Cigar Cigarettes Per Day: 1 e-Cigarette/Vaping Use: Never Used service: No Current occupational status: employed Sexual orientation: Lesbian/Hein/Homosexual Cognitive needs: No Hearing needs: No Vision needs: No Female Reproductive History Menstrual Age of Menarche: 10 Questionnaire Thrive Questionnaire Date Thrive assessed: 04/14/23 JUAN-7 AMB Questionnaire JUAN-7 Date JUAN - 7 assessed: 04/14/23 Source: Developed by Drs. Peter Sabillon, Ivette Romero, Raymon Mac and colleagues, with an educational sonam from [email or web address]. Review of Systems Const Denies chills and Denies fever(s) ENT Denies epistaxis and Denies nasal discharge Card Denies chest pain Resp Denies chest congestion, Denies cough and Denies hemoptysis GI Denies diarrhea and Denies nausea Skin/Breast Denies rash Neuro Reports no additional complaints Psych Reports no additional complaints Endo Reports no additional complaints Physical exam (Primary Care) Tobacco/Smoking Status: Tobacco use Status Tobacco use date assessed 12/31/23 12/31/23 08:54 Patient Tobacco Use Status Former Tobacco user 12/31/23 08:54 Tobacco use type Cigar 12/31/23 08:54 e-Cigarette/Vaping Use Never Used 12/31/23 08:54 Thrive Assessment: Date of Thrive Assessment Date Thrive assessed 04/14/23 12/31/23 08:54 Telehealth Telehealth Telehealth Platform: [employer] Location of provider rendering services: practice address Location of patient: address on file Patient Identification confirmed using: Name, : Yes Telehealth method: video Patient verbally consented to treatment: Yes Patient verbally consented to billing insurance company: Yes Patient informed of any privacy concerns related to visit: Yes Minutes spent on Phone/Video with Pt.: 13 Assessment and Plan Assessment & Plan (1) Leukopenia: Code(s): D72.819 - Decreased white blood cell count, unspecified Qualifiers: Leukopenia type: neutropenia Neutropenia type: other Qualified Code(s): D70.8 - Other neutropenia Plan Patient is 28-year-old female this is a telemedicine video conference to go over her labs Patient have slightly leukopenia all along but recent labs shows worsening white count. Her liver enzymes are stable but slightly elevated She is still taking iron, her hemoglobin is normal, and ferritin level is within the normal range but low normal at 15 Patient is to continue iron supplement. Labs reviewed with the patient she was given time to ask questions I will be booking her appointment with Hematology due to leukopenia. Orders: Referrals Hematology & Oncology Referral D70.8 - Other neutropenia Coding Level of Care Code Tele Est Pt Level 3 (04375) Diagnoses Other neutropenia D70.8 Leukopenia type: neutropenia Neutropenia type: other
== END 2023-12-31 09:56 | disposition home or self-care (01) ==
LOC: HO.HMGC 08:51
PROVIDERS: PCP Internal Medicine; Visit Provider Internal Medicine
DX: D70.8 Other neutropenia (principal)
CPT/HCPCS: 99213

== ENCOUNTER 2024-01-08 12:42 | Outpatient (AMB) | payer BC, SELFPAY ==
[2024-01-08 12:44] VITALS: BP 130/78; PULSE 91; TEMP 36.7; O2SAT 99; BMI 25.7
--- NOTE | 2024-01-08 12:44 | AM.OFFWIN_ITS ---
Intake Vital Signs 01/08/24 12:44 Height 5 ft 7 in Weight 164 lb BMI 25.7 BP 130/78 Blood Pressure Location Lt brachial Position Sitting Pulse 91 Pulse Source Pulse Oximeter Temp 98.0 F Temp Source Temporal Artery Scan Pulse Oximetry (%) 99 Oxygen Delivery Method Room Air Intake Visit Reasons: EP- Congestion, Fatigue, sore throat Intake Note: pt is here today for congestion fatigue sore throat started thursday Patient Tobacco Use Status: Former Tobacco user Allergies No Known Allergies Allergy (Verified 01/08/24 12:47) Do you need a note to return to daycare/school/sports/work: Yes HPI HPI Comments History of Present Illness Details This is a 28-year-old female with a past medical history of leukopenia presenting for evaluation of a sore throat and sinus congestion that she has had since Thursday. Patient states that the ?stuffiness? and sore throat have wors ened today. Patient has not taken any medication for treatment of her discomfort. Patient denies any recent sick contacts. PFSH Family History Mother Diabetes Multiple sclerosis Father HTN (hypertension) Sister Endometriosis Paternal Grandmother Ovarian cancer Maternal Aunt Breast cancer Social History Housing: House Alcohol intake: current Alcohol intake frequency: a few times a week Patient Tobacco Use Status: Former Tobacco user Tobacco use type: Cigar Cigarettes Per Day: 1 e-Cigarette/Vaping Use: Never Used service: No Current occupational status: employed Sexual orientation: Lesbian/Hein/Homosexual Cognitive needs: No Hearing needs: No Vision needs: No Female Reproductive History Menstrual Age of Menarche: 10 Review of Systems Const All systems reviewed & are unremarkable except as noted in HPI and below Denies chills and Denies fever(s) Eyes Reports itchy eyes ENT Denies otalgia, Reports sinus pressure and Reports sore throat Card Reports no additional complaints Resp Reports no additional complaints Skin/Breast Reports system reviewed and no additional complaints, except as documented Psych Reports no additional complaints Aller/Immun Reports itchy eyes Physical Exam Vital Signs: Last Vital Signs Temp 98.0 F 01/08/24 12:44 Pulse 91 01/08/24 12:44 BP 130/78 01/08/24 12:44 Pulse Ox 99 01/08/24 12:44 Oxygen Delivery Method Room Air 01/08/24 12:44 BMI result Body Mass Index 25.7 Patient is afebrile. Const General: cooperative, healthy appearing, comfortable, no acute distress, well developed, alert and awake; No acute distress Nutritional Appearance: well nourished Orientation/consciousness: patient oriented x3 Limitations: no limitations HEENT Head: Yes normal to inspection Ears: hearing grossly normal bilaterally, external ears normal, TM normal on the right, left TM abnormal (TM erythematous) and EAC's normal General nose exam: Normal external nose present and Abnormal mucous membranes and turbinates present Face and sinus: Yes sinuses nontender Mouth: Normal oral and palatal mucosa present and moist mucous membranes Teeth and gingiva: dentition normal Throat: Yes postnasal drainage Eyes General: appearance normal, both eyes and all related structures Neck Lymphatic: no lymphadenopathy noted Resp Effort & Inspection: normal respiratory effort, able to speak in complete sentences, no audible wheezes and no cough Auscultation: clear to auscultation bilaterally Cardio Rate: regular rate Rhythm: regular rhythm Neuro General: patient oriented x3 Psych Appearance: grossly normal Mental Status: mental status grossly normal Insight: Good insight present (Psych) Judgement: Good judgement present (Psych) Results AMB Rapid Strep AMB Rapid Strep Negative Last Edit by ANASTASIYA Blanton on 01/08/24 12:5 6 Results Reviewed Results Reviewed: Rapid strep test is negative. Assessment & Plan Assessment & Plan (1) Otitis media of left ear: Code(s): H66.92 - Otitis media, unspecified, left ear Qualifiers: Otitis media type: unspecified Qualified Code(s): H66.92 - Otitis media, unspecified, left ear Plan: Amoxicillin 500 mg t.i.d. x7 days. (2) Rhinitis: Code(s): J31.0 - Chronic rhinitis Qualifiers: Rhinitis type: unspecified Qualified Code(s): J31.0 - Chronic rhinitis Plan: Benadryl or other OTC antihistamine for management of sinus congestion and rhinorrhea. Orders: Orders AMB Rapid Strep Screen Today Z13.9 - Encounter for screening, unspecified Medications: New amoxicillin 500 mg PO TID 21 caps 0RF Coding Level of Care Code Est Pt Level 3 (47384) Diagnoses Left otitis media, unspecified otitis media type H66.92 Otitis media type: unspecified Rhinitis, unspecified type J31.0 Rhinitis type: unspecified Time Spent (min) 20
== END 2024-01-08 15:45 | disposition home or self-care (01) ==
PROVIDERS: PCP Internal Medicine; Visit Provider Physician Assistant
DX: H66.92 Otitis media, unspecified, left ear (principal); J31.0 Chronic rhinitis; J02.9 Acute pharyngitis, unspecified
CPT/HCPCS: 87880; 99213

== ENCOUNTER 2024-01-27 08:42 | Outpatient (AMB) | payer BC, SELFPAY ==
--- NOTE | 2024-01-27 08:42 | MHC.OFFVIS ---
Vital Signs 01/27/24 08:44 Height 5 ft 7 in Weight 164 lb BMI 25.7 BP 112/70 Intake Visit Reasons: US follow up Direct Marketing Manager: Direct Marketing Manager Present Allergies No Known Allergies Allergy (Verified 01/27/24 08:43) Is last menstrual period known: Yes Last menstrual period: 02/06/24 HPI Comments Details: Patient is here today for a follow up pelvic ultrasound results history of fibroids. History of heavy menses, currently taking iron. She denies any pelvic pain. She has currently with the same sex female partner is planning a future but not to be the carrier, she has no interested in carrying a future . PFSH Family History Mother Diabetes Multiple sclerosis Father HTN (hypertension) Sister Endometriosis Paternal Grandmother Ovarian cancer Maternal Aunt Breast cancer Social History Housing: House Alcohol intake: current Alcohol intake frequency: a few times a week Patient Tobacco Use Status: Former Tobacco user Tobacco use type: Cigar Cigarettes Per Day: 1 e-Cigarette/Vaping Use: Never Used service: No Current occupational status: employed Sexual orientation: Lesbian/Hein/Homosexual Cognitive needs: No Hearing needs: No Vision needs: No Female Reproductive History Menstrual Age of Menarche: 10 Date of last menstrual period: 02/06/24 Review of Systems Const All systems reviewed & are unremarkable except as noted in HPI and below Endo Reports no additional complaints Physical Exam Vital Signs: Last Vital Signs BP 112/70 01/27/24 08:44 BMI result Body Mass Index 25.7 Const General: cooperative, healthy appearing and no acute distress Psych Appearance: well kempt Attitude: cooperative Thought process: Normal thought process present Results Reviewed Results Reviewed: [address] [address] Ultrasound Report Signed Patient: Lore Allison MR#: [id number] : 1995 Acct:[id number] Age/Sex: 28 / F ADM Date: 12/30/23 Loc: HO.US Attending Dr: Tarsha Andrew CNM Ordering Physician: Tarsha Andrew CNM Date of Service: 12/30/23 Procedure(s): US pelvic and transvaginal Accession Number(s): [id number] cc: Betsy Mueller MD; Tarsha Andrew CNM~ EXAMINATION: US PELVIS CLINICAL INFORMATION: Excessive and frequent menstruation, last menstrual period 12/09/2023. COMPARISON: None available. TECHNIQUE: Ultrasound of the pelvis is performed using both transabdominal and transvaginal transducers along with Doppler. Transvaginal imaging is performed due to inadequate visualization transabdominally. FINDINGS: The uterus is retroverted, retroflexed and measures 7.8 x 4.9 x 9.0 cm, volume 180.5 mL. Multiple uterine fibroids with largest as follows: Right 5.7 x 4.4 x 4.9 cm, low 1.4 x 1.0 x 1.3 cm, low 1.3 x 1.1 x 1.2 cm, 1.3 x 0.6 x 0.7 cm, 1.0 x 0.6 x 0.9 cm, 2.1 x 1.8 x 2.0 cm, and left 0.8 x 0.7 x 0.8 cm and 1.3 x 1.1 x 1.3 cm. Left ovary measures 2.2 x 1.9 x 2.1 cm, volume 6.7 mL and is unremarkable. Moderate amount of free fluid. Right ovary measures 4.3 x 2.4 x 2.8 cm, volume 15.1 mL. Right ovarian 2.2 x 1.7 x 2.8 cm complex cyst versus solid lesion with possible thick stock and heterogeneous echotexture. US/US pelvic and transvaginal IMPRESSION: 1. Enlarged, fibroid, retroverted uterus. 2. Endometrium is echogenic with endometrial thickness of 9 mm. Correlation with menstrual history and clinical exam recommended to determine further management including possible biopsy in the appropriate clinical setting. 3. Right ovarian 2.8 cm complex cyst versus solid mass. Recommend follow up ultrasound in 4-6 weeks. Dictated By: Jessica Julian MD Signed By: <Electronically signed by Jessica Julian MD in [facility]> 01/12/24 0457 DD/ 1213 TD/TT: Family Services Coordinator: Assessment & Plan Assessment & Plan (1) Complex cyst of right ovary: Code(s): N83.291 - Other ovarian cyst, right side Category: Medical (2) Fibroids: Code(s): D21.9 - Benign neoplasm of connective and other soft tissue, unspecified Category: Medical Plan Discussed: Ultrasound findings. Counseled regarding findings of: Complex ovarian cyst, which is often benign, and most resolve on their own overtime. Some develop into premalignant or malignant tumors. Further monitoring and evaluation is recommended with US, possible CT, or MRI study. If persists, or is indicated (Ca-125, Carbohydrate Antigen 19-9, & Carcinoembryonic Antigen) labs will be ordered and referral to [facility] or general gynecology for MD care if indicated for possible surgical consult. Follow up in person for test results. Counseled re: Leiomyoma: common pelvic neoplasm. Differential diagnosis-may include leiomyosarcoma which is a rare uterine sarcoma 3-7/100,000, difficult to distinguish from fibroids on ultrasound from uterine sarcoma's. Unlikely any single test will have a highly positive predictive value. Hysterectomy is not recommended for sole purpose of excluding malignant neoplasm. Report any AUB. Pelvic pressure, bloating, or pain. Discuss treatment for fibroids including medication, Interventional Radiology, and surgical. Referral to MD if indicated for level of care. All of her questions and concerns were addressed to the best of my ability and shared decision making. She is agreeable to the plan of care. This note is constructed using voice recognition software. While every effort has been made to ensure accuracy, chief knowledge officer errors may have been included. Orders: Orders US pelvic and transvaginal 1 Week N83.291 - Other ovarian cyst, right side Coding Level of Care Code Est Pt Level 3 (93964) Diagnoses Complex cyst of right ovary N83.291 Fibroids D21.9
[2024-01-27 08:44] VITALS: BP 112/70; BMI 25.7
== END 2024-01-27 09:11 | disposition home or self-care (01) ==
LOC: HO.HWS 08:42
PROVIDERS: PCP Internal Medicine; Visit Provider Advanced Practice Midwife
DX: N83.291 Other ovarian cyst, right side (principal); D21.9 Benign neoplasm of connective and other soft tissue, unspecified
CPT/HCPCS: 99213

== ENCOUNTER → 2024-01-27 08:42 | Outpatient (BNVA) | payer BC, SELFPAY | PROVIDERS: PCP Internal Medicine; Visit Provider Advanced Practice Midwife ==

== ENCOUNTER → 2024-01-28 13:06 | Outpatient (BNV) | payer BC, SELFPAY | PROVIDERS: PCP Internal Medicine; Referring Provider Internal Medicine; Visit Provider Internal Medicine Medical Oncology | DX: D72.819 Decreased white blood cell count, unspecified (principal) | CPT/HCPCS: 99204 ==

== ENCOUNTER 2024-02-10 10:59 | Outpatient (REF) | payer BC, SELFPAY ==
--- NOTE | ~2024-02-10 | US_ITS ---
EXAMINATION: US PELVIS CLINICAL INFORMATION: Follow-up adnexal mass, uterine fibroids COMPARISON: 12/30/2023 TECHNIQUE: Ultrasound of the pelvis is performed using both transabdominal and transvaginal transducers along with Doppler. Transvaginal imaging is performed due to inadequate visualization transabdominally. FINDINGS: Uterus: The retroverted uterus is heterogeneous and enlarged, measuring approximately 8 cm long by 5.8 cm AP by 6.7 cm wide. The endometrium is unremarkable measuring 7 mm in thickness. As on the prior examination, there are multiple uterine masses. The largest in the right side of the fundus measures 5.8 x 5.7 x 4.4 cm. Multiple smaller masses are evident bilaterally in the uterus, unchanged. Adnexa: The right ovary measures 3.8 x 2.1 x 3.4 cm and contains small follicles. The left ovary measures 3.3 x 1.9 x 2.3 cm and contains small follicles. The previously seen right adnexal lesion is no longer evident consistent with a benign physiologic etiology. There is no free fluid in the cul-de-sac. US/US pelvic and transvaginal IMPRESSION: 1. Enlarged fibroid uterus, unchanged. 2. Normal ovaries. 3. Interval resolution of previously seen right adnexal lesion, consistent with a benign physiologic etiology.
== END 2024-02-10 11:00 | disposition home or self-care (01) ==
LOC: HO.US 10:59
PROVIDERS: PCP Internal Medicine; Visit Provider Advanced Practice Midwife
DX: N83.291 Other ovarian cyst, right side (principal)
CPT/HCPCS: 76830; 76856

== ENCOUNTER 2024-03-09 08:34 | Outpatient (AMB) | payer BC, SELFPAY ==
[2024-03-09 08:48] VITALS: BP 100/60
--- NOTE | 2024-03-09 08:48 | MHC.OFFVIS ---
Vital Signs 03/09/24 08:48 BP 100/60 Intake Visit Reasons: US follow up Full Service Supervisor: Full Service Supervisor Present Accompanied by: Mother Allergies No Known Allergies Allergy (Verified 01/28/24 13:18) Is last menstrual period known: Yes HPI Comments Details: Patient is here today for a follow-up on her pelvic ultrasound, history of large fibroid and complex ovarian cyst. She is accompanied by her mother. She reports cycles are regular lasting 6 days with cramping and heavier flow for 1-2 days. PFSH Family History Mother Diabetes Multiple sclerosis Father HTN (hypertension) Sister Endometriosis Paternal Grandmother Ovarian cancer Maternal Aunt Breast cancer Social History (Updated 01/28/24 @ 13:18 by Ludmila Arriaga) Housing: House Alcohol intake: current Alcohol intake frequency: a few times a week Patient Tobacco Use Status: Former Tobacco user Tobacco use type: Cigar e-Cigarette/Vaping Use: Never Used service: No Current occupational status: employed Sexual orientation: Lesbian/Hein/Homosexual Cognitive needs: No Hearing needs: No Vision needs: No Female Reproductive History Menstrual Age of Menarche: 10 Review of Systems Const All systems reviewed & are unremarkable except as noted in HPI and below Endo Reports no additional complaints Physical Exam Vital Signs: Last Vital Signs BP 100/60 03/09/24 08:48 Const General: cooperative, healthy appearing and no acute distress Psych Appearance: well kempt Attitude: cooperative Thought process: Normal thought process present Results Reviewed Results Reviewed: [address] [address] Ultrasound Report Signed Patient: Lore Allison MR#: [id number] : 1995 Acct:[id number] Age/Sex: 28 / F ADM Date: 02/10/24 Loc: HO.US Attending Dr: Tarsha Andrew CNM Ordering Physician: Tarsha Andrew CNM Date of Service: 02/10/24 Procedure(s): US pelvic and transvaginal Accession Number(s): [id number] cc: Betsy Mueller MD; Tarsha Andrew CNM~ EXAMINATION: US PELVIS CLINICAL INFORMATION: Follow-up adnexal mass, uterine fibroids COMPARISON: 12/30/2023 TECHNIQUE: Ultrasound of the pelvis is performed using both transabdominal and transvaginal transducers along with Doppler. Transvaginal imaging is performed due to inadequate visualization transabdominally. FINDINGS: Uterus: The retroverted uterus is heterogeneous and enlarged, measuring approximately 8 cm long by 5.8 cm AP by 6.7 cm wide. The endometrium is unremarkable measuring 7 mm in thickness. As on the prior examination, there are multiple uterine masses. The largest in the right side of the fundus measures 5.8 x 5.7 x 4.4 cm. Multiple smaller masses are evident bilaterally in the uterus, unchanged. Adnexa: The right ovary measures 3.8 x 2.1 x 3.4 cm and contains small follicles. The left ovary measures 3.3 x 1.9 x 2.3 cm and contains small follicles. The previously seen right adnexal lesion is no longer evident consistent with a benign physiologic etiology. There is no free fluid in the cul-de-sac. US/US pelvic and transvaginal IMPRESSION: 1. Enlarged fibroid uterus, unchanged. 2. Normal ovaries. 3. Interval resolution of previously seen right adnexal lesion, consistent with a benign physiologic etiology. Dictated By: Mauricio Rushing MD Signed By: <Electronically signed by Mauricio Rushing MD in [facility]> 02/25/242053 DD/ 43 TD/TT: Transcriptionis Assessment & Plan Assessment & Plan (1) Fibroids: Code(s): D21.9 - Benign neoplasm of connective and other soft tissue, unspecified Category: Medical (2) Encounter to discuss test results: Code(s): Z71.2 - Person consulting for explanation of examination or test findings Plan Discussed: Ultrasound findings complex ovarian cyst has resolved, multiple fibroids stable, largest fibroid is 5.8 cm. Options for treatment include medication, Interventional Radiology, surgical. She is interested in surgical consult and wants to look at all her options including interventional radiology, reviewed 1 of the fibroids is considered larger in range for treatment with this procedure. But smaller ones may be a consideration. She is not interested in medications at this time. Counseled re: Leiomyoma: common pelvic neoplasm. Differential diagnosis-may include but not limited to- leiomyosarcoma which is a rare uterine sarcoma 3-7/100,000, difficult to distinguish from fibroids on ultrasound from uterine sarcoma's. Unlikely any single test will have a highly positive predictive value. Hysterectomy is not recommended for sole purpose of excluding malignant neoplasm. Consult for surgical exploration, medical treatment, other treatments, verses expectant management, pros and cons, risks and benefits. Expectant management follow up in 6 months, then yearly for stability. Report any AUB. Pelvic pressure, bloating, or pain. Referral to MD if indicated for level of care if indicated. Patient prefers consult for plan of care and follow up with ultrasound at 6 months. All of her questions and concerns were addressed to the best of my ability and shared decision making. She is agreeable to the plan of care. This note is constructed using voice recognition software. While every effort has been made to ensure accuracy, assistant professor of music errors may have been included. Orders: Orders US pelvic and transvaginal 06/27/24 D21.9 - Benign neoplasm of connective and other soft tissue, unspecified Coding Level of Care Code Est Pt Level 3 (82974) Diagnoses Fibroids D21.9 Encounter to discuss test results Z71.2
== END 2024-03-09 09:30 | disposition home or self-care (01) ==
LOC: HO.HWS 08:34
PROVIDERS: PCP Internal Medicine; Visit Provider Advanced Practice Midwife
DX: D21.9 Benign neoplasm of connective and other soft tissue, unspecified (principal); Z71.2 Person consulting for explanation of examination or test findings
CPT/HCPCS: 99213

== ENCOUNTER → 2024-03-09 08:34 | Outpatient (BNVA) | payer BC, SELFPAY | PROVIDERS: PCP Internal Medicine; Visit Provider Advanced Practice Midwife ==

== ENCOUNTER 2024-07-22 10:04 | Outpatient (REF) | payer BC, SELFPAY ==
[2024-07-22 14:11] LABS: Influenza A PCR NEGATIVE (Negative); Influenza B PCR NEGATIVE (Negative); Resp Syncy Virus RNA Qual PCR NEGATIVE (Negative); SARS COV2 PCR INHOUSE POSITIVE (Negative)
== END 2024-07-22 10:05 | disposition home or self-care (01) ==
LOC: HO.LNP 10:04
PROVIDERS: Nurse Practitioner Family; PCP Internal Medicine
DX: R06.2 Wheezing (principal); J06.9 Acute upper respiratory infection, unspecified
CPT/HCPCS: 0241U; 94640

== ENCOUNTER 2024-07-22 10:04 | Outpatient (AMB) | payer BC, SELFPAY ==
--- NOTE | 2024-07-22 10:29 | AM.OFFWIN_ITS ---
Intake Vital Signs 07/22/24 10:31 Height 5 ft 6 in Weight 186 lb BMI 30.0 BP 118/76 Blood Pressure Location Lt brachial Position Sitting Pulse 103 H Pulse Source Pulse Oximeter Temp 98.5 F Temp Source Oral Pulse Oximetry (%) 99 Oxygen Delivery Method Room Air Intake Visit Reasons: EP-body fatigue, thigh chest, severe headache Intake Note: Patient here for chest tightness, head ache, body aches and SOB which started yesterday. Patient Tobacco Use Status: Former Tobacco user Allergies No Known Allergies Allergy (Verified 07/22/24 10:31) Do you need a note to return to daycare/school/sports/work: Yes HPI EP-body fatigue, thigh chest, severe headache HPI Details This is a 29-year-old female patient who presents to the walk-in clinic today with report of chest congestion/tightness, headaches, body ache, intermittent shortness of breath, cough with white sputum. This started last night. Denies known exposure to sick contacts, however does have a young daughter who attends daycare. Denies fever or chills. Denies any history of asthma. Denies any GI symptoms. [facility] Family History Mother Diabetes Multiple sclerosis Father HTN (hypertension) Sister Endometriosis Paternal Grandmother Ovarian cancer Maternal Aunt Breast cancer Social History Housing: House Alcohol intake: current Alcohol intake frequency: a few times a week Patient Tobacco Use Status: Former Tobacco user Tobacco use type: Cigar e-Cigarette/Vaping Use: Never Used service: No Current occupational status: employed Sexual orientation: Lesbian/Hein/Homosexual Cognitive needs: No Hearing needs: No Vision needs: No Female Reproductive History Menstrual Age of Menarche: 10 Review of Systems Const All systems reviewed & are unremarkable except as noted in HPI and below Physical Exam Vital Signs: Last Vital Signs Temp 98.5 F 07/22/24 10:31 Pulse 103 H 07/22/24 10:31 BP 118/76 07/22/24 10:31 Pulse Ox 99 07/22/24 10:31 Oxygen Delivery Method Room Air 07/22/24 10:31 BMI result Body Mass Index 30.0 Const General: cooperative and ill appearing acutely Limitations: no limitations HEENT Head: Yes normal to inspection Ears: hearing grossly normal bilaterally and TM's normal bilaterally General nose exam: Normal external nose present Face and sinus: Yes normal facial exam Mouth: Normal oral and palatal mucosa present Throat: Yes posterior oropharynx normal Neck Neck: Yes no lymphadenopathy Resp Effort & Inspection: normal respiratory effort and Actively coughing Quality: productive Auscultation: wheezes expiratory wheezes, inspiratory wheezes and upper bilaterally Cardio Jugular venous distension: no JVD Palpation: normal PMI Rate: regular rate Rhythm: regular rhythm Skin General skin exam: no rashes or lesions noted Extrem General: Yes capillary refill normal and Yes no clubbing, cyanosis or edema Psych Appearance: grossly normal Mental Status: mental status grossly normal Speech and movement: Normal speech and movement present Assessment & Plan Assessment & Plan (1) Upper respiratory infection: Code(s): J06.9 - Acute upper respiratory infection, unspecified Qualifiers: URI type: unspecified viral URI Qualified Code(s): J06.9 - Acute upper respiratory infection, unspecified Plan: Symptoms consistent with viral illness. Viral swab for COVID/flu/RSV was obtained today in the office. Patient aware they will be notified with results once these are available. DuoNeb nebulizer treatment was provided for patient in the office today, with reported reduction and chest tightness, and audible reduction in wheezing. I am going to prescribe an albuterol inhaler for p.r.n. use. We reviewed indications, use, possible side effects of this medication. We discussed self-limiting nature of viral illnesses and conservative measures for these symptoms, including otc cold/flu medications, rest, hydration, healthy food/vitamin intake. Patient may use inhaler prn. Patient verbalizes understanding and agrees to plan. Work note provided. Orders: Orders AMB Nebulizer Treatment Today R06.2 - Wheezing Medications: New ipratropium-albuterol 0.5 mg-3 mg(2.5 mg base)/3 mL 3 mL inhalation ONCE 3 mL 0RF wheezing R06.2 - Wheezing albuterol sulfate 90 mcg/actuation 1 inh inhalation QID PRN 6.7 grams 0RF shortness of breath or wheezing J06.9 - Acute upper respiratory infection, unspecified Coding Level of Care Code Est Pt Level 4 (50763) Diagnoses Viral upper respiratory tract infection J06.9 URI type: unspecified viral URI
[2024-07-22 10:31] VITALS: BP 118/76; PULSE 103; TEMP 36.9; O2SAT 99
== END 2024-07-22 11:26 | disposition home or self-care (01) ==
PROVIDERS: PCP Internal Medicine; Visit Provider Nurse Practitioner Family
DX: R06.2 Wheezing (principal); J06.9 Acute upper respiratory infection, unspecified

== ENCOUNTER 2024-08-31 11:29 | Outpatient (AMB) | payer BC, SELFPAY ==
[2024-08-31 11:38] VITALS: BP 116/74; PULSE 92; RESP 18; TEMP 36.8; O2SAT 98; BMI 30.3
--- NOTE | 2024-08-31 11:38 | MHC.PC.OV ---
Vital Signs 08/31/24 11:38 Height 5 ft 6 in Weight 188 lb BMI 30.3 BP 116/74 Blood Pressure Location Lt brachial Position Sitting Respiration 18 Pulse 92 Pulse Source Pulse Oximeter Temp 98.2 F Temp Source Oral Pulse Oximetry (%) 98 Oxygen Delivery Method Room Air Intake Visit Reasons: Annual PE Allergies No Known Allergies Allergy (Verified 08/31/24 11:39) Medication List - Last Reconciled 08/31/24 by Betsy Mueller MD albuterol sulfate 90 mcg/actuation 1 inh inhalation QID PRN ferrous sulfate 325 mg PO DAILY Tobacco use date assessed: 08/31/24 Dental Screening Dental Screen Date: 08/31/24 Did you have a dental visit in the last 12 months?: Yes Did you have a dental problem in the last 6 months where you did not have access to dental care?: No Was dental information given to patient?: Patient has dentist HPI Annual PE HPI Details Patient is a 29-year-old female came in today for physical exam presenting with left flank pain. Wraps around left-side abdominal and is described as a squeezing sensation. - Present pain persists particularly upon waking and sometimes after alcohol consumption. - Pain severity is measured as 4 to 5 out of 10. - No relief from any specific measure or dietary changes noted. - She has reduced alcohol intake to once a month. - Recent lab results demonstrated normal hemoglobin but continued need for iron; liver enzymes showed abnormalities previously. Health Maintenance: OBGYN visit up-to-date Medications - Iron supplement, taken once daily in the morning, for Iron Deficiency Diagnostic results - Labs: - Hemoglobin levels: normal as of January - Liver enzymes: previously noted to be abnormal Patient Instructions - Repeat blood tests including liver enzymes and fasting labs tomorrow morning. - An ultrasound will be conducted to assess kidney and pancreas health. - Book next physical exam after receiving current reports. Review of Systems - General: No fever no chills - Neurological: No headaches no dizziness - Ear nose throat: No sore throat no hearing difficulty no ear pain - Cardiovascular: No syncope, no chest pain, no palpitations - Gastrointestinal: No nausea vomiting or diarrhea - Endocrine: No polyuria polydipsia no heat intolerance - Genitourinary: No dysuria - Skin: No new complaints Physical Exam General: Cooperative, healthy appearing, comfortable, no acute distress Orientation: Patient oriented x3 Limitations: None Head: Normal to inspection Ears: Within normal limit visually Nose: Normal external nose present Face and sinus: Normal facial exam Eyes: Appearance normal, extraocular movement intact pupils reactive Neck: Normal visual inspection and supple Respiratory: Normal respiratory effort and able to speak in complete sentences. Clear to auscultation, no stridor Cardiovascular: S1 and S2 GI: Normal to inspection. Soft to palpation and nontender, except for a squeezing sensation on the left side that wraps around, rated 4 to 5 on a pain scale Back no CVAT Skin: Turgor normal, no acute findings, no rash or skin problems Neuro: Patient oriented x3, motor sensory intact, balance intact, tandem pass Extremities: Normal to inspection PFSH Family History Mother Diabetes Multiple sclerosis Father HTN (hypertension) Sister Endometriosis Paternal Grandmother Ovarian cancer Maternal Aunt Breast cancer Social History Housing: House Alcohol intake: current Alcohol intake frequency: a few times a week Patient Tobacco Use Status: Former Tobacco user Tobacco use type: Cigar e-Cigarette/Vaping Use: Never Used service: No Current occupational status: employed Sexual orientation: Lesbian/Hein/Homosexual Cognitive needs: No Hearing needs: No Vision needs: No Female Reproductive History Menstrual Age of Menarche: 10 Questionnaire PHQ-9 Over the last 2 weeks, how often have you been bothered by any of the following problems? 1. Little interest or pleasure in doing things: not at all 2. Feeling down, depressed, or hopeless: not at all 3. Trouble falling or staying asleep, or sleeping too much: not at all 4. Feeling tired or having little energy: not at all 5. Poor appetite or overeating: not at all 6. Feeling bad about yourself - or that you are a failure or have let yourself or your family down: not at all 7. Trouble concentrating on things, such as reading the newspaper or watching television: not at all 8. Moving or speaking so slowly that other people could have noticed. Or the opposite - being so fidgety or restless that you have been moving around a lot more than usual: not at all 9. Thoughts that you would be better off or of hurting yourself in some way: not at all Total score: 0 Depression Screening Interpretation: Negative Depression Screening Done: Yes 57325 - PHQ-9 Billing: Yes Source: Developed by Drs. Peter Sabillon, Ivette Romero, Raymon Mac and colleagues, with an educational sonam from [employer]. Thrive Questionnaire Date Thrive assessed: 08/31/24 I am a: Patient What is your living situation today?: I have a steady place to live Within the past 12 months, did the food you bought not last and you didn't have the money to get more?: Sometimes True Within the past 12 months, did you worry whether your food would run out before you got money to buy more?: Sometimes True Do you have trouble paying for medicines?: No Do you have trouble getting transportation to medical appointments?: No Do you have trouble paying your heating and electricity bill?: I choose not to answer this question Do you have trouble taking care of your child, family member or friend?: No Do you have trouble with day-to-day activities such as bathing, preparing meals, shopping, managing finances, etc.?: No Are you currently unemployed and looking for a job?: No Are you interested in more education?: Yes Please select the resources that you would like help with: None Currently or been in a relationship where the following occur: No concerns reported THRIVE Score: 2 AUDIT C Alcohol Use Questionnaire (AUDIT-C) 1. How often do you have a drink containing alcohol?: 2-4 times a month 2. How many drinks containing alcohol do you have on a typical day when you are drinking?: 3 or 4 3. How often do you have six or more drinks on one occasion?: Less than monthly Total Score: 4 Score Reviewed/Action Taken: Yes JUAN-7 AMB Questionnaire JUAN-7 Date JUAN - 7 assessed: 08/31/24 Feeling nervous, anxious, or on edge: 0 = Not at all Not being able to stop or control worryin = Not at all Worrying too much about different things: 0 = Not at all Trouble relaxin = Not at all Being so restless that it is hard to sit still: 0 = Not at all Becoming easily annoyed or irritable: 1 = Several days Feeling afraid as if something awful might happen: 0 = Not at all Total JUAN-7 score (0-4 normal; 5-9 mild; 10-14 moderate; 15-21 severe): 1 Source: Developed by Drs. Peter Sabillon, Ivette Romero, Raymon Mac and colleagues, with an educational sonam from [employer]. JUAN-7 Assessment Billing JUAN-7 Assessment Tool: JUAN-7 Assessment 17602 Physical exam (Primary Care) Vital Signs: Last Vital Signs Temp 98.2 F 08/31/24 11:38 Pulse 92 08/31/24 11:38 Resp 18 08/31/24 11:38 BP 116/74 08/31/24 11:38 Pulse Ox 98 08/31/24 11:38 Oxygen Delivery Method Room Air 08/31/24 11:38 BMI result Body Mass Index 30.3 Tobacco/Smoking Status: Tobacco use Status Tobacco use date assessed 08/31/24 08/31/24 11:40 Patient Tobacco Use Status Former Tobacco user 08/31/24 11:40 Tobacco use type Cigar 08/31/24 11:40 e-Cigarette/Vaping Use Never Used 08/31/24 11:40 PHQ-9: PHQ-9 Score PHQ-9: Total score 0 08/31/24 11:40 Depression Screening Interpretation: Negative Thrive Assessment: Date of Thrive Assessment Date Thrive assessed 08/31/24 08/31/24 11:40 Currently or been in a relationship where the following occur: No concerns reported Coding Level of Care Code Est Pt Level 3 (88934) Est Pt Prev Care 18-39y(68562) Diagnoses Encounter for general adult medical examination with abnormal findings Z00.01 Left flank pain R10.9 LFT elevation R79.89 Additional Codes JUAN-7 Assessment Billing - JUAN-7 Assessment Tool: JUAN-7 Assessment 07832 ([id number]) PHQ-9 - 50384 - PHQ-9 Billing: Yes ([id number]) Assessment & Plan Assessment & Plan (1) Encounter for general adult medical examination with abnormal findings: Code(s): Z00.01 - Encounter for general adult medical examination with abnormal findings Category: Medical (2) Left flank pain: Code(s): R10.9 - Unspecified abdominal pain Category: Medical (3) LFT elevation: Code(s): R79.89 - Other specified abnormal findings of blood chemistry Category: Medical Plan Patient is a 29-year-old female came in today for physical exam presenting with left flank pain. Wraps around left-side abdominal and is described as a squeezing sensation. - Present pain persists particularly upon waking and sometimes after alcohol consumption. - Pain severity is measured as 4 to 5 out of 10. - No relief from any specific measure or dietary changes noted. - She has reduced alcohol intake to once a month. - Recent lab results demonstrated normal hemoglobin but continued need for iron; liver enzymes showed abnormalities previously. - BMI is elevated need to lose weight - last set of labs with slightly elevated LFTs we will be repeating those again Health Maintenance: OBGYN visit up-to-date Medications - Iron supplement, taken once daily in the morning, for Iron Deficiency Diagnostic results - Labs: - Hemoglobin levels: normal as of January - Liver enzymes: previously noted to be abnormal Patient Instructions - Repeat blood tests including liver enzymes and fasting labs tomorrow morning. - An ultrasound will be conducted to assess kidney and pancreas health. - Book next physical exam after receiving current reports. Orders: Orders Complete Blood Count Auto Diff Today R10.9 - Unspecified abdominal pain, R79.89 - Other specified abnormal findings of blood chemistry, Z00.01 - Encounter for general adult medical examination with abnormal findings Comprehensive [place]. Panel Fast Today R10.9 - Unspecified abdominal pain, R79.89 - Other specified abnormal findings of blood chemistry, Z00.01 - Encounter for general adult medical examination with abnormal findings Lipid Panel Today R10.9 - Unspecified abdominal pain, R79.89 - Other specified abnormal findings of blood chemistry, Z00.01 - Encounter for general adult medical examination with abnormal findings UA CC w/rflx Micro + Cult Today R10.9 - Unspecified abdominal pain, R79.89 - Other specified abnormal findings of blood chemistry, Z00.01 - Encounter for general adult medical examination with abnormal findings Lipase Today R10.9 - Unspecified abdominal pain, R79.89 - Other specified abnormal findings of blood chemistry, Z00.01 - Encounter for general adult medical examination with abnormal findings US renal LT Today R10.9 - Unspecified abdominal pain Amylase Today R10.9 - Unspecified abdominal pain, R79.89 - Other specified abnormal findings of blood chemistry, Z00.01 - Encounter for general adult medical examination with abnormal findings
--- OUTSIDE RECORDS SUMMARY | 2024-08-31 13:23 | XMS_ITS | Clinical Summary ---
Author Organization [facility] ity Address [address] [place] [address] Care Team Providers Care Wardrobe Manager Name Role Phone Unavailable Primary Care Provider Unavailabl e Medical History Medical History Date Comments Acute suppurative otitis med ia without spontaneous rupture of eardrum DX:Acute suppurative ot itis media without spontaneous rupture of eardrum; COMMENT: 05/22 Pneumonia, organism unspecified(486) DX:Pneumonia, organism unspecified(486); COMMENT: 04/21 Streptococcal sore throat DX:Str eptococcal sore throat; COMMENT: 11/18,09/18,07/21 Sickle-cell trait (CMS/HCC) DX:S ickle-cell trait (HCC) Family History Medical History Relation Name Comments Diabetes Maternal Grandmother Other: Other Mother CHRONE'S DISEAS E Stroke Other 1 Maternal Aunt h ad CVA with [place] at age 48 Relation Name Status Comments Brother Alive DIMITRY 1985 Father Alive 1960 Maternal Grandmother Mother Alive 1963 Other 1 Other 2 Sister Alive DYANNDRA 1989 Social History Tobacco Use Types Packs/Day Years Used Date Smoking Tobacco: Never Alcohol Use Standard Drinks/Week Comments Not Asked 0 (1 standard drink = 0.6 oz pur e alcohol) Comments Unknown Sex and Gender Information Value Date Recorded Sex Assigned at Not on file Legal Sex Female 4:36 PM EST Gender Identity Not on file Sexual Orientation Not on file Obstetrics History Plan of Treatment Health Maintenance Due Date Last Done Comments Pneumococcal Vaccine: Pediatrics (0 to 5 Years) and At-Risk Patients (6 to 64 Years) (1 of 2 - PCV) 1999 Cervical Cancer Screening: Pap Smear 2014 DTaP,Tdap,and Td Vaccines (8 - Td or Tdap) 06/21/2017 06/21/2007, 05/06/2004, 05/29/1997, Additional history exists Depression Screening 08/18/2023 HIV Screening 08/18/2023 Hepatitis C Screening 08/18/2023 Social Influencers of Health Screening 08/18/2023 COVID-19 Vaccine ( season) 2024 Influenza Vaccine (#1) 2024 08/02/2010, 2008 Hepatitis B Vaccines Completed 01/30/1994, 1993, 1993 HIB Vaccines Completed 08/07/1994, 10/18, 1993, Additional history exists IPV Vaccines Completed 05/29/1997, 07/20, 05/03/1994, Additional history exists MMR Vaccines Completed 05/29/1997, 08/07/1994 HPV Vaccines Completed 01/28/2008, 08/20, 06/21/2007 Varicella Vaccines Completed 07/12/2009, 05/03/1995 Meningococcal ACWY Vaccine Completed 12/24/2010, Hepatitis A Vaccines Aged Out No long er eligible based on patient's age to complete this topic RSV Immunization Patients Under 20 months Aged Out No longer eligible based on patient's age to complete this topic
== END 2024-08-31 11:55 | disposition home or self-care (01) ==
PROVIDERS: PCP Internal Medicine; Visit Provider Internal Medicine
DX: Z00.00 Encounter for general adult medical examination without abnormal findings (principal); R10.9 Unspecified abdominal pain; R79.89 Other specified abnormal findings of blood chemistry

== ENCOUNTER → 2024-08-31 11:29 | Outpatient (BNVA) | payer BC, SELFPAY | PROVIDERS: PCP Internal Medicine; Visit Provider Internal Medicine | DX: Z00.01 Encounter for general adult medical examination with abnormal findings (principal); R10.9 Unspecified abdominal pain; R79.89 Other specified abnormal findings of blood chemistry | CPT/HCPCS: 96127 ==

== ENCOUNTER 2024-09-01 08:28 | Outpatient (REF) | payer BC, SELFPAY ==
--- OUTSIDE RECORDS SUMMARY | 2024-09-01 08:37 | XMS_ITS | Clinical Summary ---
Author Organization [facility] ity Address [address] [place] [address] Care Team Providers Care Baker Helper Name Role Phone Unavailable Primary Care Provider [...]
[2024-09-01 10:13] LABS: MANUAL DIFF FLAG NO
[2024-09-01 10:21] LABS: Appearance Urine Clear; Basophils Percent Auto 0.9 % (0-2); Color Urine Yellow; Eosinophils Absolute Auto 0.1 X10*3/uL (0.0-0.4); Eosinophils Percent Auto 2.3 % (0-4); Glucose Urine UA Negative (Negative); Hematocrit 35.5 % (37.0-47.0); Hemoglobin 11.9 g/dl (12.0-16.0); Imm Gran Abs Auto 0.01 X10*3/uL (0.00-0.03); Imm Gran Pct Auto 0.3 % (0.0-0.4); Leukocyte Esterase Urine Negative (Negative); Lymphocytes Absolute Auto 1.4 X10*3/uL (1.2-4.9); Lymphocytes Percent Auto 41.6 % (20-40); Mean Corpuscular HGB Conc 33.5 g/dl (31.0-35.0); Mean Corpuscular Hemoglobin 25.4 pg (27.0-33.0); Mean Corpuscular Volume 75.7 fL (80.0-98.0); Monocytes Absolute Auto 0.2 X10*3/uL (0.1-1.2); Monocytes Percent Auto 6.4 % (2-11); Neutrophils Absolute Auto 1.7 x10*3/uL (2.0-8.3); Neutrophils Percent Auto 48.5 % (45-73); Nitrite Urine Negative (Negative); PH 6.5 (5.0-9.0); Platelet Count 234 X10*3/uL (160-400); Red Blood Count 4.69 X10*6/uL (4.20-5.50); Red Cell Distribution Width 13.5 % (11.0-16.0); Specific Gravity - Urine 1.015 (1.005-1.025); Urine Blood Negative (Negative); Urine Ketones Negative (Negative); Urine Protein Negative (Neg-Trace); White Blood Count 3.4 X10*3/uL (4.8-10.8)
[2024-09-01 10:36] LABS: Alanine Aminotransferase 121 U/L (0-31); Albumin Level 4.5 g/dL (3.5-5.0); Alkaline Phosphatase 61 U/L (39-117); Amylase 205 U/L (28-100); Anion Gap 12 (12-20); Aspartate Amino Transferase 105 U/L (5-31); Bilirubin Total 0.4 mg/dL (0.0-1.0); Blood Urea Nitrogen 11 mg/dL (9-16); Calcium 9.9 mg/dL (8.4-10.2); Carbon Dioxide 25 mmol/L (22-29); Chloride 104 mmol/L (96-108); Cholesterol 159 mg/dL (<200); Estimated Glomerular Filt Rate > 60; Glucose Fasting 89 mg/dL (60-99); HDL Cholesterol 65 mg/dL (>40); LDL Cholesterol Calculated 78 mg/dL (<100); Lipase 32 U/L (8-78); Potassium 4.1 mmol/L (3.3-5.1); Sodium 137 mmol/L (135-145); Total Protein 7.9 g/dL (6.5-8.0); Triglycerides 84 mg/dL (<150)
== END 2024-09-01 08:29 | disposition home or self-care (01) ==
LOC: HO.HMGCLDS 08:28
PROVIDERS: PCP Internal Medicine; Visit Provider Internal Medicine
DX: Z00.01 Encounter for general adult medical examination with abnormal findings (principal); R79.89 Other specified abnormal findings of blood chemistry; R10.9 Unspecified abdominal pain
CPT/HCPCS: 36415; 80053; 80061; 81003; 82150; 83690; 85025

== ENCOUNTER 2024-09-08 08:17 | Outpatient (AMB) | payer BC, SELFPAY ==
--- OUTSIDE RECORDS SUMMARY | 2024-09-08 08:27 | XMS_ITS | Clinical Summary ---
Author Organization [facility] ity Address [address] [place] [address] Care Team Providers Care Supervisor Coke Handling Name Role Phone Unavailable Primary Care Provider [...] 64 Years) (1 of 2 - PCV) 2012 Cervical Cancer Screening: Pap Smear 2014 DTaP,Tdap,and [...] on patient's age to complete this topic Meningococcal B Vacine Aged Out No lo nger eligible based on patient's age to complete this topic RSV Immunization Patients Under 20 months Aged Out No longer eligible based on patient's age to complete this topic
--- NOTE | 2024-09-08 09:02 | MHC.PC.OV ---
Intake Visit Reasons: Discuss Labs Allergies No Known Allergies Allergy (Verified 09/08/24 09:03) Medication List - Last Reconciled 09/08/24 by Betsy Mueller MD albuterol sulfate 90 mcg/actuation 1 inh inhalation QID PRN ferrous sulfate 325 mg PO DAILY Tobacco use date assessed: 08/31/24 Dental Screening Dental Screen Date: 08/31/24 HPI Discuss Labs HPI Details History - The patient is a 29-year-old female presenting for an assessment and follow-up on abnormal laboratory results. - Past assessment by a business office manager addressed leukopenia; there was a temporary improvement in white cell count, though levels have since decreased again. - Anemia noted on current testing with a hemoglobin level slightly below normal range; no immediate treatment was recommended other than continued monitoring. - Elevated liver enzymes correlate with alcohol consumption, though patient has ceased intake. - A scheduled abdominal ultrasound will evaluate liver condition further. - Pancreatitis diagnosed as the cause of abdominal discomfort, aligned with lifestyle factors; cessation of alcohol consumption was advised. Patient Instructions - Avoid alcohol consumption completely. - Drink plenty of water and consume a diet comprising light, bland food with frequent small meals. - Limit protein intake and increase carbohydrate consumption. - Proceed with the abdominal ultrasound as scheduled for the liver evaluation. - Maintain regular lab work every three months to monitor blood counts and liver enzyme levels. Review of Systems - General: No fever no chills - Neurological: No headaches no dizziness - Ear nose throat: No sore throat no hearing difficulty no ear pain - Cardiovascular: No syncope, no chest pain, no palpitations - Gastrointestinal: No nausea vomiting or diarrhea - Endocrine: No polyuria polydipsia no heat intolerance - Genitourinary: No dysuria , no blood in urine [facility] History No pertinent past surgical history Family History Mother Diabetes Multiple sclerosis Father HTN (hypertension) Sister Endometriosis Paternal Grandmother Ovarian cancer Maternal Aunt Breast cancer Social History Housing: House Alcohol intake: current Alcohol intake frequency: a few times a week Patient Tobacco Use Status: Former Tobacco user Tobacco use type: Cigar e-Cigarette/Vaping Use: Never Used service: No Current occupational status: employed Sexual orientation: Lesbian/Hein/Homosexual Cognitive needs: No Hearing needs: No Vision needs: No Female Reproductive History Menstrual Age of Menarche: 10 Questionnaire Thrive Questionnaire Date Thrive assessed: 08/31/24 I am a: Patient What is your living situation today?: I have a steady place to live Within the past 12 months, did the food you bought not last and you didn't have the money to get more?: Sometimes True Within the past 12 months, did you worry whether your food would run out before you got money to buy more?: Sometimes True Do you have trouble paying for medicines?: No Do you have trouble getting transportation to medical appointments?: No Do you have trouble paying your heating and electricity bill?: I choose not to answer this question Do you have trouble taking care of your child, family member or friend?: No Do you have trouble with day-to-day activities such as bathing, preparing meals, shopping, managing finances, etc.?: No Are you currently unemployed and looking for a job?: No Are you interested in more education?: Yes Please select the resources that you would like help with: None Currently or been in a relationship where the following occur: No concerns reported THRIVE Score: 2 AUDIT C Alcohol Use Questionnaire (AUDIT-C) 1. How often do you have a drink containing alcohol?: 2-4 times a month 2. How many drinks containing alcohol do you have on a typical day when you are drinking?: 3 or 4 3. How often do you have six or more drinks on one occasion?: Less than monthly Total Score: 4 Score Reviewed/Action Taken: Yes JUAN-7 AMB Questionnaire JUAN-7 Date JUAN - 7 assessed: 08/31/24 Source: Developed by Drs. Peter Sabillon, Ivette Romero, Raymon Mac and colleagues, with an educational sonam from [employer]. Physical exam (Primary Care) Tobacco/Smoking Status: Tobacco use Status Tobacco use date assessed 08/31/24 09/08/24 09:04 Patient Tobacco Use Status Former Tobacco user 09/08/24 09:04 Tobacco use type Cigar 09/08/24 09:04 e-Cigarette/Vaping Use Never Used 09/08/24 09:04 Thrive Assessment: Date of Thrive Assessment Date Thrive assessed 08/31/24 09/08/24 09:04 Currently or been in a relationship where the following occur: No concerns reported Telehealth Telehealth Telehealth Platform: Telephone Location of provider rendering services: practice address Location of patient: address on file Patient Identification confirmed using: Name, : Yes Telehealth method: video Patient verbally consented to treatment: Yes Patient verbally consented to billing insurance company: Yes Patient informed of any privacy concerns related to visit: Yes Minutes spent on Phone/Video with Pt.: 16 Coding Level of Care Code Tele Est Pt Level 3 (43007) Diagnoses Left flank pain R10.9 LFT elevation R79.89 Elevated amylase R74.8 Assessment & Plan Assessment & Plan (1) Left flank pain: Code(s): R10.9 - Unspecified abdominal pain Category: Medical (2) LFT elevation: Code(s): R79.89 - Other specified abnormal findings of blood chemistry Category: Medical (3) Elevated amylase: Code(s): R74.8 - Abnormal levels of other serum enzymes Category: Medical Plan History - The patient is a 29-year-old female presenting for an assessment and follow-up on abnormal laboratory results. - Past assessment by a business office manager addressed leukopenia; there was a temporary improvement in white cell count, though levels have since decreased again. - Anemia noted on current testing with a hemoglobin level slightly below normal range; no immediate treatment was recommended other than continued monitoring. - Elevated liver enzymes correlate with alcohol consumption, though patient has ceased intake. - A scheduled abdominal ultrasound will evaluate liver condition further. - Pancreatitis diagnosed as the cause of abdominal discomfort, aligned with lifestyle factors; cessation of alcohol consumption was advised. Patient Instructions - Avoid alcohol consumption completely. - Drink plenty of water and consume a diet comprising light, bland food with frequent small meals. - Limit protein intake and increase carbohydrate consumption. - Proceed with the abdominal ultrasound as scheduled for the liver evaluation. - Maintain regular lab work every three months to monitor blood counts and liver enzyme levels. Review of Systems - General: No fever no chills - Neurological: No headaches no dizziness - Ear nose throat: No sore throat no hearing difficulty no ear pain - Cardiovascular: No syncope, no chest pain, no palpitations - Gastrointestinal: No nausea vomiting or diarrhea - Endocrine: No polyuria polydipsia no heat intolerance - Genitourinary: No dysuria , no blood in urine Orders: Orders US abdomen complete Today R79.89 - Other specified abnormal findings of blood chemistry
== END 2024-09-08 10:13 | disposition home or self-care (01) ==
LOC: HO.HMCC 08:17
PROVIDERS: PCP Internal Medicine; Visit Provider Internal Medicine
DX: R10.9 Unspecified abdominal pain (principal); R79.89 Other specified abnormal findings of blood chemistry; R74.8 Abnormal levels of other serum enzymes

== ENCOUNTER 2024-09-14 11:16 | Outpatient (REF) | payer BC, SELFPAY ==
--- NOTE | ~2024-09-14 | US_ITS ---
CLINICAL HISTORY: R79.89 - Other specified abnormal findings of blood chemistry US abdomen complete Comparison: None Findings: The visualized pancreas is normal. The aorta and inferior vena cava are normal caliber. The liver is normal in size and echotexture. There is no intrahepatic bile duct dilatation. The common duct is 1.5 mm in diameter. The gallbladder is normal. There is no sonographic Garcia sign. The main portal vein is antegrade. The right kidney is 10.5 cm in length. The left kidney is 10.2 cm in length. 18 mm lower pole cyst. The spleen is normal. No ascites. IMPRESSION: 1. Normal complete abdominal ultrasound. This document has been electronically signed by: Tima Adams MD on 09/15/2024 06:32:08
--- OUTSIDE RECORDS SUMMARY | 2024-09-14 14:08 | XMS_ITS | Clinical Summary ---
Author Organization [facility] ity Address [address] [place] [address] Care Team Providers Care Admissions Gate Attendant Name Role Phone Unavailable Primary Care Provider [...]
== END 2024-09-14 11:17 | disposition home or self-care (01) ==
LOC: HO.US 11:16
PROVIDERS: PCP Internal Medicine; Visit Provider Internal Medicine
DX: R10.9 Unspecified abdominal pain (principal); R79.89 Other specified abnormal findings of blood chemistry
CPT/HCPCS: 76700

== ENCOUNTER → 2024-09-14 11:26 | Outpatient (BNV) | payer BC, SELFPAY | PROVIDERS: PCP Internal Medicine; Visit Provider Radiology Vascular & Interventional Radiology | DX: R79.89 Other specified abnormal findings of blood chemistry (principal) | CPT/HCPCS: 76700 ==

== ENCOUNTER 2024-09-21 12:17 | Outpatient (AMB) | payer BC, SELFPAY ==
[2024-09-21 12:30] VITALS: BP 120/80; PULSE 92; TEMP 36.7; O2SAT 97; BMI 30.3
--- NOTE | 2024-09-21 12:30 | AM.OFFWIN_ITS ---
Intake Vital Signs 09/21/24 12:30 Height 5 ft 6 in Weight 188 lb BMI 30.3 BP 120/80 Blood Pressure Location Lt brachial Position Sitting Pulse 92 Pulse Source Pulse Oximeter Temp 98.1 F Temp Source Oral Pulse Oximetry (%) 97 Intake Visit Reasons: EP [place] eye? Intake Note: pt is here for pink eye Patient Tobacco Use Status: Former Tobacco user Allergies No Known Allergies Allergy (Verified 09/21/24 12:30) Medication List - Last Reconciled 09/21/24 by Betsy Mueller MD albuterol sulfate 90 mcg/actuation 1 inh inhalation QID PRN ferrous sulfate 325 mg PO DAILY Do you need a note to return to daycare/school/sports/work: Yes HPI EP [place] eye? HPI Details History - The patient is a 29-year-old female pr esenting with redness and swelling of the right eye. - She noticed redness and swelling in th e morning on waking, which persists to present. - The eye feels somewhat dry without sig nificant itchiness - There was no history of instilling eye drops, and no visual impairment was reported. - She has taken allergy medicine, noting minimal relief. - The symptoms are monitored due to chil dcare responsibilities, as there is concern about spreading, although the child is unaffected. Problem List - Conjunctival Hyperemia Patient Instructions - Use prescribed (eye drops) - Monitor for worsening or spreading, es pecially due to childcare involvement. 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 oriented x3 motor sensory intact Skin: Normal turgor PFSH Surgical History No pertinent past surgical history Family History Mother Diabetes Multiple sclerosis Father HTN (hypertension) Sister Endometriosis Paternal Grandmother Ovarian cancer Maternal Aunt Breast cancer Social History Housing: House Alcohol intake: current Alcohol intake frequency: a few times a week Patient Tobacco Use Status: Former Tobacco user Tobacco use type: Cigar e-Cigarette/Vaping Use: Never Used service: No Current occupational status: employed Sexual orientation: Lesbian/Hein/Homosexual Cognitive needs: No Hearing needs: No Vision needs: No Female Reproductive History Menstrual Age of Menarche: 10 Physical Exam Vital Signs: Last Vital Signs Temp 98.1 F 09/21/24 12:30 Pulse 92 09/21/24 12:30 BP 120/80 09/21/24 12:30 Pulse Ox 97 09/21/24 12:30 BMI result Body Mass Index 30.3 Assessment & Plan Assessment & Plan (1) Acute conjunctivitis, right eye: Code(s): H10.31 - Unspecified acute conjunctivitis, right eye Qualifiers: Acute conjunctivitis type: unspecified Qualified Code(s): H10.31 - Unspecified acute conjunctivitis, right eye Plan History - The patient is a 29-year-old female presenting with redness and swelling of the right eye. - She noticed redness and swelling in the morning on waking, which persists to present. - The eye feels somewhat dry without significant itchiness - There was no history of instilling eye drops, and no visual impairment was reported. - She has taken allergy medicine, noting minimal relief. - The symptoms are monitored due to childcare responsibilities, as there is concern about spreading, although the child is unaffected. Problem List - Conjunctival Hyperemia Patient Instructions - Use prescribed (eye drops) - Monitor for worsening or spreading, especially due to childcare involvement. Medications: New polymyxin B sulf-trimethoprim 10,000 unit- 1 mg/mL while awake; do not exceed 6 doses in 24 hours 1 drp ophthalmic (eye) QID 10 mL 0RF 5 days Coding Level of Care Code Est Pt Level 3 (89765) Diagnoses Acute conjunctivitis of right eye, unspecified acute conjunctivitis type H10.31 Acute conjunctivitis type: unspecified
--- OUTSIDE RECORDS SUMMARY | 2024-09-21 14:41 | XMS_ITS | Clinical Summary ---
Author Organization [facility] ity Address [address] [place] [address] Care Team Providers Care Creative Lead Name Role Phone Unavailable Primary Care Provider [...]
== END 2024-09-21 12:51 | disposition home or self-care (01) ==
PROVIDERS: PCP Internal Medicine; Visit Provider Internal Medicine
DX: H10.31 Unspecified acute conjunctivitis, right eye (principal)

== ENCOUNTER → 2024-09-21 12:17 | Outpatient (BNVA) | payer BC, SELFPAY | PROVIDERS: PCP Internal Medicine; Visit Provider Internal Medicine ==

== ENCOUNTER 2024-10-05 14:34 | Outpatient (REF) | payer BC, SELFPAY ==
--- NOTE | ~2024-10-05 | US_ITS ---
EXAMINATION: US PELVIS TRANSABDOMINAL AND TRANSVAGINAL HISTORY: D21.9 - Benign neoplasm of connective and other soft tissue, unspecified COMPARISON: Comparison is made with the prior examination dated 02/10/2024. TECHNIQUE: Transabdominal and endovaginal real-time 2D silva-scale ultrasound was performed. Color Doppler was also performed. FINDINGS: Uterus: The uterus is enlarged measuring 11.3 x 6.5 x 8.6 cm. Myometrium has a normal echotexture. Multiple fibroids are again noted including a right fundal fibroid measuring 7.4 x 6.9 x 6.6 cm (previously 5.7 x 4.4 x 5.8 cm), a left uterine body fibroid measuring 1.3 x 1.2 x 1.3 cm (previously 1.4 x 1.0 x 0.8 cm), a left fundal fibroid measuring 2.3 x 1.7 x 2.0 cm (previously 2.5 x 1.7 x 2.0 cm), a right uterine body fibroid measuring 1.1 x 1.3 x 1 x 1 cm (previously 1.5 x 1.3 x 1.3 cm), and a left uterine body fibroid measuring 1.4 x 1.4 x 1.3 cm, which was not seen previously. Additional fibroids seen on the prior study are not definitely identified today. Endometrium: The endometrial stripe measures 9 mm in thickness. Right ovary: The right ovary measures 4.3 x 3.7 x 4.4 cm. There is a heterogeneous hypoechoic area in the right ovary measuring 2.4 x 2.1 x 2 point 4 cm which may represent a corpus luteum. Left ovary: The left ovary measures 3.2 x 2.4 x 2.0 cm. The left ovary is normal in size and echotexture. There is a 3 mm calcification in the ovary. Color Doppler analysis of the bilateral ovarian arteries and veins is normal. Pelvic fluid: There is a small amount of free fluid in the cul-de-sac.. US/US pelvic and transvaginal IMPRESSION: Fibroid uterus as described. Electronically signed by: Peter Aden MD 10/06/2024 07:10 AM EDT RP
--- OUTSIDE RECORDS SUMMARY | 2024-10-05 16:52 | XMS_ITS | Clinical Summary ---
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
== END 2024-10-05 14:35 | disposition home or self-care (01) ==
LOC: HO.US 14:34
PROVIDERS: Visit Provider Advanced Practice Midwife
DX: D21.9 Benign neoplasm of connective and other soft tissue, unspecified (principal)
CPT/HCPCS: 76830; 76856

== ENCOUNTER → 2024-10-05 14:35 | Outpatient (BNV) | payer BC, SELFPAY | PROVIDERS: Visit Provider Radiology Diagnostic Radiology | DX: D25.9 Leiomyoma of uterus, unspecified (principal) | CPT/HCPCS: 76830; 76856 ==

== ENCOUNTER 2024-10-12 12:46 | Outpatient (AMB) | payer BC, SELFPAY ==
--- NOTE | 2024-10-12 12:46 | A.OFFVIS_ITS ---
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 Time spent included review of pertinent office notes in the electronic health record; review of laboratory and imaging results; review of personal family medical history; discussing diagnosis and plan of care with the patient; documenting the encounter in the EMR. Patient presents to discuss: Ultrasound follow up, history of fibroids. She reports her cycles are now 5 days, heavy for 1-2 days, and rarely does she expe rience any cramping. She denies any pelvic pain. [facility] Medical History (Updated 10/12/24 @ 12:54 by Tarsha Andrew CNM) Fibroids Surgical History No pertinent past surgical history Family History Mother Diabetes Multiple sclerosis Father HTN (hypertension) Sister Endometriosis Paternal Grandmother Ovarian cancer Maternal Aunt Breast cancer Social History Housing: House Alcohol intake: current Alcohol intake frequency: a few times a week Patient Tobacco Use Status: Former Tobacco user Tobacco use type: Cigar e-Cigarette/Vaping Use: Never Used service: No Current occupational status: employed Sexual orientation: Lesbian/Hein/Homosexual Cognitive needs: No Hearing needs: No Vision needs: No Female Reproductive History Menstrual Age of Menarche: 10 Date of last menstrual period: 09/17/24 Review of Systems Const All systems reviewed & are unremarkable except as noted in HPI and below Endo Reports no additional complaints Physical Exam Const General: cooperative, healthy appearing and no acute distress Psych Appearance: well kempt Attitude: cooperative Thought process: Normal thought process present Telehealth Telehealth Telehealth Platform: DoxAnna Lozabai Location of provider rendering services: practice address Location of patient: other Patient Identification confirmed using: Name, : Yes Telehealth method: video Patient verbally consented to treatment: Yes Patient verbally consented to billing insurance company: Yes Patient informed of any privacy concerns related to visit: Yes Results Reviewed Results Reviewed: [address] [address] Ultrasound Report Signed Patient: Lore Allison MR#: [id number] : 1995 Acct:[id number] Age/Sex: 29 / F ADM Date: 10/05/24 Loc: HO.US Attending Dr: Tarsha Andrew CNM Ordering Physician: Tarsha Andrew CNM Date of Service: 10/05/24 Procedure(s): US pelvic and transvaginal Accession Number(s): [id number] cc: Tarsha Andrew CNM~ EXAMINATION: US PELVIS TRANSABDOMINAL AND TRANSVAGINAL HISTORY: D21.9 - Benign neoplasm of connective and other soft tissue, unspecified COMPARISON: Comparison is made with the prior examination dated 02/10/2024. TECHNIQUE: Transabdominal and endovaginal real-time 2D silva-scale ultrasound was performed. Color Doppler was also performed. FINDINGS: Uterus: The uterus is enlarged measuring 11.3 x 6.5 x 8.6 cm. Myometrium has a normal echotexture. Multiple fibroids are again noted including a right fundal fibroid measuring 7.4 x 6.9 x 6.6 cm (previously 5.7 x 4.4 x 5.8 cm), a left uterine body fibroid measuring 1.3 x 1.2 x 1.3 cm (previously 1.4 x 1.0 x 0.8 cm), a left fundal fibroid measuring 2.3 x 1.7 x 2.0 cm (previously 2.5 x 1.7 x 2.0 cm), a right uterine body fibroid measuring 1.1 x 1.3 x 1 x 1 cm (previously 1.5 x 1.3 x 1.3 cm), and a left uterine body fibroid measuring 1.4 x 1.4 x 1.3 cm, which was not seen previously. Additional fibroids seen on the prior study are not definitely identified today. Endometrium: The endometrial stripe measures 9 mm in thickness. Right ovary: The right ovary measures 4.3 x 3.7 x 4.4 cm. There is a heterogeneous hypoechoic area in the right ovary measuring 2.4 x 2.1 x 2 point 4 cm which may represent a corpus luteum. Left ovary: The left ovary measures 3.2 x 2.4 x 2.0 cm. The left ovary is normal in size and echotexture. There is a 3 mm calcification in the ovary. Color Doppler analysis of the bilateral ovarian arteries and veins is normal. Pelvic fluid: There is a small amount of free fluid in the cul-de-sac.. US/US pelvic and transvaginal IMPRESSION: Fibroid uterus as described. 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 Differential diagnosis-may include but not limited to- leiomyosarcoma which is a rare uterine sarcoma 3- 7/100,000, difficult to distinguish from fibroids on ultrasound from uterine sarcoma's. Unlikely any single test will have a highly positive predictive value. Hysterectomy is not recommended for sole purpose of excluding malignant neoplasm. Consult for surgical exploration, medical treatment, other treatments, verses expectant management, pros and cons, risks and benefits. Expectant management follow up in 6 months, then yearly for stability. Patient prefers to proceed with expectant management. Report any AUB, pelvic pressure, bloating, or pain. Referral to MD if indicated for level of care if indicated. She is not interested in cycle control or other interventions. She would prefer to a monitor her menstrual cycles. Follow up ultrasound results. Keep appointment for annual exam in December. The patient expressed understanding and agreement with the plan of care. All of her questions and concerns were addressed to the best of my ability. This note is constructed using voice recognition software. While every effort has been made to ensure accuracy, home security alarm installer errors may have been included. Orders: Orders US pelvic and transvaginal 08/11/25 D21.9 - Benign neoplasm of connective and other soft tissue, unspecified Coding Level of Care Code Tele Est Pt Level 3 (24670) Diagnoses Fibroids D21.9
--- OUTSIDE RECORDS SUMMARY | 2024-10-12 15:05 | XMS_ITS | Clinical Summary ---
Author Organization [facility] ity Address [address] [place] [address] Care Team Providers Care Chief Technologist Name Role Phone Unavailable Primary Care Provider [...]
== END 2024-10-12 14:04 | disposition home or self-care (01) ==
LOC: HO.HWS 12:46
PROVIDERS: PCP Internal Medicine; Visit Provider Advanced Practice Midwife
DX: D21.9 Benign neoplasm of connective and other soft tissue, unspecified (principal)
CPT/HCPCS: 99213

== ENCOUNTER → 2024-10-12 12:46 | Outpatient (BNVA) | payer BC, SELFPAY | PROVIDERS: PCP Internal Medicine; Visit Provider Advanced Practice Midwife ==

== ENCOUNTER 2025-01-04 09:09 | Outpatient (AMB) | payer BC, SELFPAY ==
--- NOTE | 2025-01-04 09:10 | AM.OFFWIN_ITS ---
Intake Vital Signs 01/04/25 09:13 Height 5 ft 6 in Weight 170 lb BMI 27.4 BP 126/80 Blood Pressure Location Lt brachial Position Sitting Pulse 106 H Pulse Source Pulse Oximeter Temp 97.9 F Temp Source Oral Pulse Oximetry (%) 98 Oxygen Delivery Method Room Air Intake Visit Reasons: EP UTI Intake Note: Pt presents to the office today for c/o UTI symptoms(frequency, lower left abdomen pain) Patient Tobacco Use Status: Former Tobacco user Allergies No Known Allergies Allergy (Verified 01/04/25 09:13) HPI HPI Comments History of Present Illness Details History - The patient is a 29-year-old female pr esenting with burning with urination and increased frequency. - Symptoms began five days ago with irri tation and cloudy urine. - Denies blood in urine, back pain, or f ever. - No history of kidney stones. - slight LLQ pain Physical Exam General: Cooperative, healthy appearing, comfortable, no acute distress and well developed Orientation: Patient oriented x3 Limitations: No limitations Head: Normal to inspection Ears: Hearing cloudy in the right ear Face and sinus: Normal facial exam Neck: Normal visual inspection and Yes full ROM Respiratory: Normal respiratory effort and able to speak in complete sentences. Skin: No rashes or lesions noted Neuro: Patient oriented x3 [facility] Medical History Fibroids Surgical History No pertinent past surgical history Family History Mother Diabetes Multiple sclerosis Father HTN (hypertension) Sister Endometriosis Paternal Grandmother Ovarian cancer Maternal Aunt Breast cancer Social History Housing: House Alcohol intake: current Alcohol intake frequency: a few times a week Patient Tobacco Use Status: Former Tobacco user Tobacco use type: Cigar e-Cigarette/Vaping Use: Never Used service: No Current occupational status: employed Sexual orientation: Lesbian/Hein/Homosexual Cognitive needs: No Hearing needs: No Vision needs: No Female Reproductive History Menstrual Age of Menarche: 10 Review of Systems Const All systems reviewed & are unremarkable except as noted in HPI and below Physical Exam Vital Signs: Last Vital Signs Temp 97.9 F 01/04/25 09:13 Pulse 106 H 01/04/25 09:13 BP 126/80 01/04/25 09:13 Pulse Ox 98 01/04/25 09:13 Oxygen Delivery Method Room Air 01/04/25 09:13 BMI result Body Mass Index 27.4 Results AMB Urinalysis, Automated UA Leukoctes 0 Geovanna/uL Last Edit by Liana Alberto CMA on 01/04/25 09:20 UA Nitrite Negative Last Edit by Liana Alberto, KATIE on 01/04/25 09:20 UA Urobilinogen 0.2 mg/dL Last Edit by Liana Alberto, KATIE on 01/04/25 09:20 UA Protein 0 mg/dL Last Edit by Liana Alberto, KATIE on 01/04/25 09:20 UA pH 6.0 Last Edit by Liana Alberto, KATIE on 01/04/25 09:20 UA Blood 0 Cezar/uL Last Edit by Liana Alberto, KATIE on 01/04/25 09:20 UA Specific [place] 1.015 Last Edit by Liana Alberto CMA on 01/04/25 09:20 UA Ketone Negative Last Edit by Liana Alberto CMA on 01/04/25 09:20 UA Bilirubin 0 mg/dL Last Edit by Liana Alberto CMA on 01/04/25 09:20 UA Glucose 0 mg/dL Last Edit by Liana Alberto CMA on 01/04/25 09:20 Results Reviewed Results Reviewed: Laboratory Last Values Urine pH (Auto) 6.0 01/04/25 09:19 Specific [place] (Auto) 1.015 01/04/25 09:19 Urine Protein (Auto) 0 mg/dL 01/04/25 09:19 Glucose (UA)(Auto) 0 mg/dL 01/04/25 09:19 Urine Ketones (Auto) Negative 01/04/25 09:19 Urine Blood (Auto) 0 Cezar/uL 01/04/25 09:19 Urine Nitrite (Auto) Negative 01/04/25 09:19 Urine Bilirubin (Auto) 0 mg/dL 01/04/25 09:19 Urine Urobilinogen (Auto) 0.2 mg/dL 01/04/25 09:19 Leukocyte Esterase (Auto) 0 Geovanna/uL 01/04/25 09:19 Assessment & Plan Assessment & Plan (1) UTI symptoms: Code(s): R39.9 - Unspecified symptoms and signs involving the genitourinary system Plan: Patient was informed and verbally consented to the use of an ambient scribe for clinic note documentation during this visit. - UA neg for leuks, nitrties or blood, will treat for UTI based on symptoms - Initiated treatment with Cefuroxime, 500 mg twice daily for five days. - Advised to monitor symptoms and discontinue antibiotics if culture results are negative. - Recommended probiotics to prevent dysbiosis. - if symptoms continue and urine cx is negative, follow up here or with PCP for further work up. 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 Orders: Orders AMB Urinalysis Automated Today Z13.9 - Encounter for screening, unspecified Urine Culture Today N39.0 - Urinary tract infection, site not specified Medications: New cefuroxime axetil 500 mg PO Q12H 10 tabs 0RF Coding Level of Care Code Est Pt Level 3 (25719) Diagnoses UTI symptoms R39.9
[2025-01-04 09:13] VITALS: BP 126/80; PULSE 106; TEMP 36.6; O2SAT 98; BMI 27.4
== END 2025-01-04 09:31 | disposition home or self-care (01) ==
PROVIDERS: PCP Internal Medicine; Visit Provider Physician Assistant
DX: R39.9 Unspecified symptoms and signs involving the genitourinary system (principal); Z13.9 Encounter for screening, unspecified

== ENCOUNTER 2025-01-04 09:24 | Outpatient (REF) | payer BC, SELFPAY | END 2025-01-04 09:25 | disposition home or self-care (01) | LOC: HO.LAB 09:24 | PROVIDERS: Visit Provider Physician Assistant | DX: N39.0 Urinary tract infection, site not specified (principal); R39.9 Unspecified symptoms and signs involving the genitourinary system | CPT/HCPCS: 81003; 87086 ==

== ENCOUNTER 2025-03-15 11:51 | Outpatient (AMB) | payer OTHER, BC, SELFPAY ==
[2025-03-15 11:53] VITALS: BP 122/84; PULSE 81; RESP 16; TEMP 36.7; O2SAT 99; BMI 32.3
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
--- OUTSIDE RECORDS SUMMARY | 2025-03-15 12:41 | XMS_ITS | Clinical Summary ---
Author Organization [facility] ity Address [address] [place] [address] Care Team Providers Care Senior Center Manager Name Role Phone Unavailable Primary Care Provider Unavailabl e Medical History Medical History Date Comments Acute suppurative otitis med ia without spontaneous rupture of eardrum DX:Acute suppurative ot itis media without spontaneous rupture of eardrum; COMMENT: 05/22 Pneumonia, organism unspecified(486) DX:Pneumonia, organism unspecified(486); COMMENT: 04/21 Streptococcal sore throat DX:Str eptococcal sore throat; COMMENT: 11/18,09/18,07/21 Sickle-cell trait (CMS/HCC V24) DX:Sickle-cell trait (HCC) Family History Medical History Relation [...] 5 Years) and At-Risk Patients (6 to 49 Years) (1 of 2 - PCV) 2012 Cervical Cancer Screening: Pap Smear 2014 DTaP,Tdap,and Td Vaccines (8 - Td or Tdap) 06/21/2017 06/21/2007, 05/06/2004, 05/29/1997, Additional history exists HIV Screening 08/18/2023 Hepatitis C Screening 08/18/2023 Social Influencers of Health Screening 08/18/2023 COVID-19 Vaccine ( season) 2024 Depression Screening 07/20/2024 Influenza Vaccine (#1) 2025 08/02/2010, 2008 Hepatitis B Vaccines Completed 01/30/1994, [...] age to complete this topic Meningococcal B Vaccine Aged Out No l onger eligible based on patient's age to complete this topic RSV Immunization Patients Under 20 months Aged Out No longer eligible based on patient's age to complete this topic
== END 2025-03-15 12:26 | disposition home or self-care (01) ==
LOC: HO.HMCC 11:51
PROVIDERS: PCP Internal Medicine; Visit Provider Internal Medicine
DX: G44.309 Post-traumatic headache, unspecified, not intractable (principal); M54.2 Cervicalgia; S46.812A Strain of other muscles, fascia and tendons at shoulder and upper arm level, left arm, initial encounter; Z04.3 Encounter for examination and observation following other accident; M25.512 Pain in left shoulder; V89.2XXA Person injured in unspecified motor-vehicle accident, traffic, initial encounter

== ENCOUNTER 2025-04-05 10:07 | Outpatient (AMB) | payer OTHER, BC, SELFPAY ==
[2025-04-05 10:09] VITALS: BP 122/80; PULSE 78; O2SAT 98; BMI 32.0
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
--- OUTSIDE RECORDS SUMMARY | 2025-04-05 12:18 | XMS_ITS | Clinical Summary ---
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
== END 2025-04-05 10:27 | disposition home or self-care (01) ==
LOC: HO.HMCC 10:08
PROVIDERS: PCP Internal Medicine; Visit Provider Internal Medicine
DX: M54.16 Radiculopathy, lumbar region (principal); V89.2XXA Person injured in unspecified motor-vehicle accident, traffic, initial encounter; G44.309 Post-traumatic headache, unspecified, not intractable; M54.2 Cervicalgia; S46.812A Strain of other muscles, fascia and tendons at shoulder and upper arm level, left arm, initial encounter; M25.512 Pain in left shoulder

== ENCOUNTER 2025-04-05 11:33 | Outpatient (REF) | payer OTHER, BC, SELFPAY ==
--- NOTE | ~2025-04-05 | US_ITS ---
EXAMINATION: US PELVIS CLINICAL INFORMATION: Benign neoplasm of connective and other soft tissue, unspecified, 6 month follow-up. COMPARISON: 10/05/2024, 02/10/2024. TECHNIQUE: Ultrasound of the pelvis is performed using both transabdominal and transvaginal transducers along with Doppler. Transvaginal imaging is performed due to inadequate visualization transabdominally. FINDINGS: Uterus: The uterus is retroverted, retroflexed, and measures 8.0 x 4.2 x 6.5 cm. Cervix is normal with small nabothian cysts present. The double wall endometrial thickness is 6 mm. It is uniform. The uterus demonstrates heterogeneous myometrial echogenicity. There are 5 fibroid tumors present as follows: -A right fundal subserosal fibroid measures 6.2 x 5.1 x 5.8 cm, (previously slightly larger at 7.4 x 6.5 x 6.7 cm). -A left lower uterine segment intramural fibroid measures 1.9 x 1.5 x 1.9 cm, (previously slightly smaller at 1.3 x 1.2 x 1.3 cm). -A left fundal subserosal fibroid measures 2.8 x 2.0 x 2.6 cm, (previously slightly smaller at 2.3 x 1.7 x 2.0 cm). -A right lower uterine segment subserosal fibroid measures 2.4 x 1.4 x 2.1 cm, (previously slightly smaller at 1.1 x 1.3 x 1.1 cm). -A left mid uterine segment subserosal fibroid measures 1.9 x 1.0 x 1.5 cm, (previously slightly smaller at 1.4 x 1.3 x 1.4 cm). Adnexa: Both ovaries are visualized. There is normal color flow to the adnexa. There is no ovarian torsion. There is no pelvic ascites or fluid collection. There are no adnexal masses. Right ovary measures 4.0 x 3.0 x 3.0 cm. Volume = 18.9 mL. There is a minimally complex 2.6 x 2.2 x 2.4 cm ovarian follicular cyst. Left ovary measures 3.0 x 3.0 x 2.4 cm. Volume = 11.3 mL. Normal sonographic appearance. US/US pelvic and transvaginal IMPRESSION: 1. There are 5 discrete fibroid tumors identified, the largest of which has slightly decreased in size at 6.2 cm, and the remaining 4 have slightly increased in size as detailed above. 2. Normal endometrium measuring 6 mm thickness. 3. Normal ovaries bilaterally. Minimally complex follicular cyst in the right ovary measuring 2.6 cm. Electronically signed by: Zaheer Mitchell MD 04/05/2025 02:12 PM EDT
== END 2025-04-05 11:34 | disposition home or self-care (01) ==
LOC: HO.US 11:33
PROVIDERS: PCP Internal Medicine; Visit Provider Advanced Practice Midwife
DX: M54.16 Radiculopathy, lumbar region (principal); D21.9 Benign neoplasm of connective and other soft tissue, unspecified; G44.309 Post-traumatic headache, unspecified, not intractable; M54.2 Cervicalgia; S46.812A Strain of other muscles, fascia and tendons at shoulder and upper arm level, left arm, initial encounter; M25.512 Pain in left shoulder; V89.2XXA Person injured in unspecified motor-vehicle accident, traffic, initial encounter
CPT/HCPCS: 76830; 76856; 96127

== ENCOUNTER → 2025-04-05 11:35 | Outpatient (BNV) | payer OTHER, BC, SELFPAY | PROVIDERS: PCP Internal Medicine; Visit Provider Radiology Diagnostic Radiology | DX: D25.9 Leiomyoma of uterus, unspecified (principal) | CPT/HCPCS: 76830; 76856 ==

== ENCOUNTER 2025-04-24 10:19 | Outpatient (AMB) | payer BC, SELFPAY ==
[2025-04-24 11:27] VITALS: BP 116/80; PULSE 90; TEMP 36.7; O2SAT 98; BMI 31.3
--- NOTE | 2025-04-24 11:27 | AM.OFFWIN_ITS ---
Intake Vital Signs 04/24/25 11:27 Height 5 ft 6 in Weight 194 lb BMI 31.3 BP 116/80 Blood Pressure Location Lt brachial Position Sitting Pulse 90 Pulse Source Pulse Oximeter Temp 98.1 F Temp Source Oral Pulse Oximetry (%) 98 Oxygen Delivery Method Room Air Intake Visit Reasons: EP RT ear pain, inside and back, itching Intake Note: pt presents with itching and skin irritation to external ear and now with inner ear pain x5 days Patient Tobacco Use Status: Former Tobacco user Allergies No Known Allergies Allergy (Verified 04/24/25 11:31) Do you need a note to return to daycare/school/sports/work: Yes HPI HPI Comments History of Present Illness Details 29 y/o Female patient who presents to [facility] clinic with c/o Right Pinna/Auricle skin irritation associated with Itching for 5 days. Denies any new Cosmetic products, or topical hair dyes or lotion. Reports severe itching behind external right Ear for few days now. Denies any Ear pain or discharge. Denies any URI symptoms. [facility] Medical History (Updated 04/24/25 @ 12:11 by Rosina Bone NP) Cellulitis of auricle of ear Fibroids Surgical History No pertinent past surgical history Family History Mother Diabetes Multiple sclerosis Father HTN (hypertension) Sister Endometriosis Paternal Grandmother Ovarian cancer Maternal Aunt Breast cancer Social History Housing: House Alcohol intake: current Alcohol intake frequency: a few times a week Patient Tobacco Use Status: Former Tobacco user Tobacco use type: Cigar e-Cigarette/Vaping Use: Never Used service: No Current occupational status: employed Sexual orientation: Lesbian/Hein/Homosexual Cognitive needs: No Hearing needs: No Vision needs: No Female Reproductive History Menstrual Age of Menarche: 10 Physical Exam Vital Signs: Last Vital Signs Temp 98.1 F 04/24/25 11:27 Pulse 90 04/24/25 11:27 BP 116/80 04/24/25 11:27 Pulse Ox 98 04/24/25 11:27 Oxygen Delivery Method Room Air 04/24/25 11:27 BMI result Body Mass Index 31.3 Const General: no acute distress Nutritional Appearance: well nourished Orientation/consciousness: patient oriented x3 HEENT Head: Yes normocephalic Ears: TM's normal bilaterally and external ear abnormal other (Erythematous crusting brownish discharge behind Ear right) General nose exam: Normal external nose present Neuro General: patient oriented x3, gait normal and moves all extremities Psych Speech and movement: Normal speech and movement present Assessment & Plan Assessment & Plan (1) Cellulitis of auricle of ear: Code(s): H60.10 - Cellulitis of external ear, unspecified ear Qualifiers: Laterality: right Qualified Code(s): H60.11 - Cellulitis of right external ear Plan: DDx's: Dermatitis contact vs Eczema vs Cellulitis vs Heidi. Ordered Topical fungal cream and Ordered Oral Abx. Keep Area clean and Dry. Medications: New cephalexin 500 mg PO BID 14 caps 0RF 7 days H60.11 - Cellulitis of right external ear clotrimazole-betamethasone 1-0.05 % APPLY TOPICALLY TO THE AFFECTED RIGHT EAR TWICE A DAY. 1 appl topical BID 45 grams 0RF 2 weeks H60.11 - Cellulitis of right external ear Coding Level of Care Code Est Pt Level 4 (03058) Diagnoses Cellulitis of right pinna H60.11 Laterality: right Time Spent (min) 20
--- OUTSIDE RECORDS SUMMARY | 2025-04-24 12:03 | XMS_ITS | Clinical Summary ---
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
== END 2025-04-24 12:08 | disposition home or self-care (01) ==
PROVIDERS: PCP Internal Medicine; Visit Provider Nurse Practitioner Family
DX: H60.11 Cellulitis of right external ear (principal)

== ENCOUNTER 2025-04-26 11:16 | Outpatient (AMB) | payer BC, SELFPAY ==
--- NOTE | 2025-04-26 11:21 | A.OFFVIS_ITS ---
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 Present Accompanied by: Self / Same As Patient Allergies No Known Allergies Allergy (Verified 04/26/25 13:17) Medication List - Last Reconciled 04/26/25 by Tracy Neri LPN albuterol sulfate 90 mcg/actuation 1 inh inhalation QID PRN amitriptyline 10 mg PO BEDTIME cephalexin 500 mg PO BID 7 days clotrimazole-betamethasone 1-0.05 % 1 appl topical BID 2 weeks ferrous sulfate 325 mg PO DAILY Is last menstrual period known: Yes Last menstrual period: 04/17/25 Do you need a note to return to daycare/school/sports/work: No HPI Comments Details: Patient is here today for a follow up pelvic ultrasound, history of multiple fibroids. She did not nice any pelvic pain, bloating, pressure or any other concerns she reports her cycles are on the shorter side, and she prefers to not do any cycle control at this time in observe only. She has no plans for future , her partner maybe carrier with surrogate in the future. [facility] Medical History Complex ovarian cyst Cellulitis of auricle of ear Fibroids Surgical History No pertinent past surgical history Family History Mother Diabetes Multiple sclerosis Father HTN (hypertension) Sister Endometriosis Paternal Grandmother Ovarian cancer Maternal Aunt Breast cancer Social History Housing: House Alcohol intake: current Alcohol intake frequency: a few times a week Patient Tobacco Use Status: Former Tobacco user Tobacco use type: Cigar e-Cigarette/Vaping Use: Never Used service: No Current occupational status: employed Sexual orientation: Lesbian/Hein/Homosexual Cognitive needs: No Hearing needs: No Vision needs: No Female Reproductive History Menstrual Age of Menarche: 10 Date of last menstrual period: 04/17/25 Date of last pap smear: 12/24/23 History of abnormal pap smear: No Review of Systems Const All systems reviewed & are unremarkable except as noted in HPI and below Endo Reports no additional complaints Physical Exam Vital Signs: BMI result Body Mass Index 32.1 Const General: cooperative, healthy appearing and no acute distress Psych Appearance: well kempt Attitude: cooperative Thought process: Normal thought process present Results AMB Rapid Strep AMB Rapid Strep Negative Last Edit by Hazel Tamayo MA on 04/26/25 15:49 Results Reviewed Results Reviewed: [facility] [address] [place] [id number] Ultrasound Report Signed Patient: Lore Allison MR#: [id number] : 1995 Acct:[id number] Age/Sex: 29 / F ADM Date: 04/05/25 Loc: HO.US Attending Dr: Tarsha Andrew CNM Ordering Physician: Tarsha Andrew CNM Date of Service: 04/05/25 Procedure(s): US pelvic and transvaginal Accession Number(s): [id number] cc: Betsy Mueller MD; Tarsha Andrew CNM~ Reason for Exam: D21.9 - Benign neoplasm of connective and other soft tissue, unspecified EXAMINATION: US PELVIS CLINICAL INFORMATION: Benign neoplasm of connective and other soft tissue, unspecified, 6 month follow-up. COMPARISON: 10/05/2024, 02/10/2024. TECHNIQUE: Ultrasound of the pelvis is performed using both transabdominal and transvaginal transducers along with Doppler. Transvaginal imaging is performed due to inadequate visualization transabdominally. FINDINGS: Uterus: The uterus is retroverted, retroflexed, and measures 8.0 x 4.2 x 6.5 cm. Cervix is normal with small nabothian cysts present. The double wall endometrial thickness is 6 mm. It is uniform. The uterus demonstrates heterogeneous myometrial echogenicity. There are 5 fibroid tumors present as follows: -A right fundal subserosal fibroid measures 6.2 x 5.1 x 5.8 cm, (previously slightly larger at 7.4 x 6.5 x 6.7 cm). -A left lower uterine segment intramural fibroid measures 1.9 x 1.5 x 1.9 cm, (previously slightly smaller at 1.3 x 1.2 x 1.3 cm). -A left fundal subserosal fibroid measures 2.8 x 2.0 x 2.6 cm, (previously slightly smaller at 2.3 x 1.7 x 2.0 cm). -A right lower uterine segment subserosal fibroid measures 2.4 x 1.4 x 2.1 cm, (previously slightly smaller at 1.1 x 1.3 x 1.1 cm). -A left mid uterine segment subserosal fibroid measures 1.9 x 1.0 x 1.5 cm, (previously slightly smaller at 1.4 x 1.3 x 1.4 cm). Adnexa: Both ovaries are visualized. There is normal color flow to the adnexa. There is no ovarian torsion. There is no pelvic ascites or fluid collection. There are no adnexal masses. Right ovary measures 4.0 x 3.0 x 3.0 cm. Volume = 18.9 mL. There is a minimally complex 2.6 x 2.2 x 2.4 cm ovarian follicular cyst. Left ovary measures 3.0 x 3.0 x 2.4 cm. Volume = 11.3 mL. Normal sonographic appearance. US/US pelvic and transvaginal IMPRESSION: 1. There are 5 discrete fibroid tumors identified, the largest of which has slightly decreased in size at 6.2 cm, and the remaining 4 have slightly increased in size as detailed above. 2. Normal endometrium measuring 6 mm thickness. 3. Normal ovaries bilaterally. Minimally complex follicular cyst in the right ovary measuring 2.6 cm. 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 Some develop into premalignant or malignant tumors. Limitations of testing for diagnostic purposes. Further monitoring and evaluation is recommended with US, possible CT, or MRI study. If persists, or is indicated (Ca-125, Carbohydrate Antigen 19-9, & Carcinoembryonic Antigen) labs will be ordered and referral to [facility] or general gynecology for MD care if indicated for possible surgical consult. Follow up in person for test results. All of her questions and concerns were addressed to the best of my ability and shared decision making. She is agreeable to the plan of care. This note is constructed using voice recognition software. While every effort has been made to ensure accuracy, power plant operations manager errors may have been included. (2) Fibroid: Code(s): D21.9 - Benign neoplasm of connective and other soft tissue, unspecified Plan: Counseled re: Leiomyoma: common pelvic neoplasm. Differential diagnosis-may include but not limited to- leiomyosarcoma which is a rare uterine sarcoma 3- 7/100,000, difficult to distinguish from fibroids on ultrasound from uterine sarcoma's. Unlikely any single test will have a highly positive predictive value. Hysterectomy is not recommended for sole purpose of excluding malignant neoplasm. Consult for surgical exploration, medical treatment, other treatments, verses expectant management, pros and cons, risks and benefits. Expectant management follow up in 6 months, then yearly for stability. Patient prefers to proceed with expectant management. Referral to MD if indicated for level of care if indicated Report any AUB, pelvic pressure, bloating, or pain. Plan Discuss test results- IMPRESSION: 1. There are 5 discrete fibroid tumors identified, the largest of which has slightly decreased in size at 6.2 cm, and the remaining 4 have slightly increased in size as detailed above. 2. Normal endometrium measuring 6 mm thickness. 3. Normal ovaries bilaterally. Minimally complex follicular cyst in the right ovary measuring 2.6 cm. The patient expressed understanding and agreement with the plan of care. All of her questions and concerns were addressed to the best of my ability. This note is constructed using voice recognition software. While every effort has been made to ensure accuracy, power plant operations manager errors may have been included. Orders: Orders US pelvic and transvaginal 3 Months N83.299 - Other ovarian cyst, unspecified side Coding Level of Care Code Est Pt Level 3 (65552) Diagnoses Complex ovarian cyst N83.299 Fibroid D21.9
[2025-04-26 11:23] VITALS: BMI 32.1
== END 2025-04-26 12:09 | disposition home or self-care (01) ==
LOC: HO.HWS 11:17
PROVIDERS: PCP Internal Medicine; Visit Provider Advanced Practice Midwife
DX: N83.299 Other ovarian cyst, unspecified side (principal); D21.9 Benign neoplasm of connective and other soft tissue, unspecified
CPT/HCPCS: 99213

== ENCOUNTER → 2025-04-26 11:16 | Outpatient (BNVA) | payer BC, SELFPAY | PROVIDERS: PCP Internal Medicine; Visit Provider Advanced Practice Midwife | DX: J02.9 Acute pharyngitis, unspecified (principal) | CPT/HCPCS: 87880 ==

== ENCOUNTER 2025-04-26 12:28 | Outpatient (AMB) | payer BC, SELFPAY ==
[2025-04-26 13:10] VITALS: BP 110/70; PULSE 77; TEMP 36.9; O2SAT 100; BMI 32.1
--- NOTE | 2025-04-26 13:10 | AM.OFFWIN_ITS ---
Intake Vital Signs 04/26/25 13:10 Height 5 ft 6 in Weight 199 lb BMI 32.1 BP 110/70 Blood Pressure Location Lt brachial Position Sitting Pulse 77 Pulse Source Pulse Oximeter Temp 98.5 F Temp Source Oral Pulse Oximetry (%) 100 Oxygen Delivery Method Room Air Intake Visit Reasons: ep gland swollen sore throat Patient Tobacco Use Status: Former Tobacco user Allergies No Known Allergies Allergy (Verified 04/26/25 13:17) Do you need a note to return to daycare/school/sports/work: No HPI HPI Comments History of Present Illness Details History of Present Illness - The patient is a 29-year-old female pr esenting with a sore throat and oral thrush. - The sore throat began with a burning s ensation in the throat and mouth, accompanied by a rash behind the ear. - The patient was previously prescribed antibiotics for an ear rash and infection, which has since improved, though the sore throat persists. - She was seen here on Thursday and she roberts s been taking Keflex. - The patient reports a swollen lymph no de on one side, which appeared two days after the onset of symptoms. - The patient denies any cough or conges tion but reports a headache. 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 - She denies fever, chills, runny nose, CP, SOB, abd pain, or n/v/d. - She is not a smoker. Physical Exam General: Cooperative, healthy appearing, comfortable, no acute distress and well developed Orientation: Patient oriented x3 Limitations: No limitations Head: Normal to inspection Ears: Hearing grossly normal bilaterally. No tragus tenderness noted. No mastoid tenderness noted. TM's visualized, not bulging. Canals are clear bilaterally. Nose: Normal external nose present Face and sinus: Normal facial exam. No sinus tenderness noted. Throat: Uvula is midline. Oropharynx is erythematous, tonsils erythematous with exudate noted. Tongue is white and midline with no fasciculations noted Neck: Normal visual inspection and Yes full ROM. TTP of the right tonsillar lymph node. Respiratory: Normal respiratory effort and able to speak in complete sentences. Clear to auscultation bilaterally. No w/r/r noted. Cardiovascular: Regular rate and rhythm. Normal S1 and S2. No m/r/g noted Skin: Erythematous rash behind the pinnae on the right. Patient was informed and verbally consented to the use of an ambient scribe for clinic note documentation during this visit. [facility] Medical History (Updated 04/26/25 @ 11:58 by Tarsha Andrew CNM) Complex ovarian cyst Cellulitis of auricle of ear Fibroids Surgical History No pertinent past surgical history Family History Mother Diabetes Multiple sclerosis Father HTN (hypertension) Sister Endometriosis Paternal Grandmother Ovarian cancer Maternal Aunt Breast cancer Social History Housing: House Alcohol intake: current Alcohol intake frequency: a few times a week Patient Tobacco Use Status: Former Tobacco user Tobacco use type: Cigar e-Cigarette/Vaping Use: Never Used service: No Current occupational status: employed Sexual orientation: Lesbian/Hein/Homosexual Cognitive needs: No Hearing needs: No Vision needs: No Female Reproductive History Menstrual Age of Menarche: 10 Review of Systems Const All systems reviewed & are unremarkable except as noted in HPI and below Physical Exam Vital Signs: Last Vital Signs Temp 98.5 F 04/26/25 13:10 Pulse 77 04/26/25 13:10 BP 110/70 04/26/25 13:10 Pulse Ox 100 04/26/25 13:10 Oxygen Delivery Method Room Air 04/26/25 13:10 BMI result Body Mass Index 32.1 Results AMB Rapid Strep AMB Rapid Strep Negative Last Edit by Hazel Tamayo MA on 04/26/25 15:49 Assessment & Plan Assessment & Plan (1) Sore throat: Code(s): J02.9 - Acute pharyngitis, unspecified (2) Thrush: Code(s): B37.0 - Candidal stomatitis Plan Most likely oral thrush rapid strep was negative plan - Prescribed nystatin swish and swallow to treat oral thrush. - Advised to complete the course of antibiotics despite negative strep test to rule out bacterial infection. - Negative strep test; viral culture recommended to rule out viral infection. - Prescribed prednisone for five days to reduce inflammation. - tylenol or motrin as needed for pain or fever - diet as tolerated - salt water gargles - follow up with PCP Orders: Orders Resp Pathogen Panel - [facility] [place] Today J06.9 - Acute upper respiratory infection, unspecified AMB Rapid Strep Screen Today Z13.9 - Encounter for screening, unspecified Medications: New prednisone 40 mg (2 x 20 mg) PO DAILY 10 tabs 0RF 5 days nystatin administer 1/2 of dose in each side of the mouth 5 mL buccal qid 140 mL 0RF 7 days Coding Level of Care Code Est Pt Level 3 (99131) Diagnoses Sore throat J02.9 Thrush B37.0
== END 2025-04-26 14:29 | disposition home or self-care (01) ==
PROVIDERS: PCP Internal Medicine; Visit Provider Physician Assistant Medical
DX: J02.9 Acute pharyngitis, unspecified (principal); B37.0 Candidal stomatitis; Z13.9 Encounter for screening, unspecified

== ENCOUNTER 2025-05-17 09:56 | Outpatient (AMB) | payer OTHER, SELFPAY ==
[2025-05-17 09:58] VITALS: BP 100/62; PULSE 84; RESP 16; TEMP 36.6; O2SAT 100; BMI 32.0
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
--- OUTSIDE RECORDS SUMMARY | 2025-05-17 11:58 | XMS_ITS | Clinical Summary ---
Author Organization [facility] ity Address [address] [place] [address] Care Team Providers Care Postpartum Rn Name Role Phone Unavailable Primary Care Provider [...]
== END 2025-05-17 10:49 | disposition home or self-care (01) ==
LOC: HO.HMCC 09:57
PROVIDERS: PCP Internal Medicine; Visit Provider Internal Medicine
DX: M54.2 Cervicalgia (principal); S46.812A Strain of other muscles, fascia and tendons at shoulder and upper arm level, left arm, initial encounter; M25.512 Pain in left shoulder; Z04.3 Encounter for examination and observation following other accident; V89.2XXS Person injured in unspecified motor-vehicle accident, traffic, sequela

== ENCOUNTER 2025-05-25 11:30 | Outpatient (AMB) | payer BC, SELFPAY ==
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
[2025-05-25 11:43] VITALS: BP 136/80; PULSE 86; TEMP 36.5; O2SAT 97; BMI 32.6
--- OUTSIDE RECORDS SUMMARY | 2025-05-25 14:25 | XMS_ITS | Clinical Summary ---
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
== END 2025-05-25 12:16 | disposition home or self-care (01) ==
PROVIDERS: PCP Internal Medicine; Visit Provider Physician Assistant Medical
DX: H10.32 Unspecified acute conjunctivitis, left eye (principal)